=== PATIENT | male | born 1970 | race Hispanic/Latino ===

== ENCOUNTER 2018-12-04 16:05 | Emergency (ER) | payer MEDICARE, OTHER ==
[~2018-12-04] VITALS: Ht 172.7 cm; Wt 99.8 kg
[~2018-12-04 16:05] MED LIST: ALPRAZOLAM1 MG PO; ATORVASTATIN CA10 MG PO; BUPROPION HCL100 MG PO; CALCIUM600 MG PO; CINNAMON500 MG PO; COLESTIPOL HCL1 G1 PO; COLESTIPOL HCL1 GM PO; CRESTOR10 MG PO; CYMBALTA60 MG PO; DEXILANT60 MG PO; DICYCLOMINE HCL20 MG PO; FISH OIL300 MG PO; FOLIC ACID1 MG PO; GLIMEPIRIDE2 MG PO; HUMIRA40 MG/0.8 SC; HYDROCODON-ACE1 EAC9 PO; HYOSCYAMINE0.125 M2 PO; IBUPROFEN400 MG PO; LISINOPRIL2.5 MG PO; LISINOPRIL5 MG PO; LYRICA150 MG PO; LYRICA75 MG PO; METFORMIN HCL500 MG PO; METHOCARBAMOL750 MG PO; METHOTREXATE2.5 MG PO; METOCLOPRAMIDE H5 MG PO; PREDNISONE5 MG PO; SEROQUEL XR300 MG PO; SEROQUEL25 MG PO; SERTRALINE HCL100 MG PO; SUCRALFATE1 GM PO; TIZANIDINE HCL4 MG PO; TRICOR145 MG PO; ULTRAM 50MG50 MG PO
--- OUTSIDE RECORDS SUMMARY | 2018-12-04 16:08 | XMS REPORT | Clinical Summary ---
Author Author [facility] Organization [facility] Address Unknown Phone Unavailable Care Team Providers Care Engineering Director Name Role Phone Timoteo Fowler MD PCP Allergies Comments Active Allergy Reactions Severity Noted Date Clindamycin Rash Low 01/08/2008 Codeine 07/04/2007 Penicillin V Potassium 07/01/2009 Medications End Date Status Medication Sig Dispensed Refills Start Date Active Hfsox-4-UAX-EPA-Fish Oil Take by 0 1,000 mg (120 mg-180 mg) mouth. cap Active colestipol (COLESTID) 1 Take by mouth 0 gram Tab 2 times daily. Active calcium carbonate/vitamin Take by mouth 0 D3 (CALCIUM 600 + D,3, daily. OR) Active Butalbital-Acetaminophen- Take by mouth 0 Caff 50-300-40 mg cap every 6 hours as needed for Headache. Active atorvastatin (LIPITOR) 40 Take 40 mg by 0 mg tablet mouth at bedtime nightly. Active ammonium lactate Apply to 0 (LAC-HYDRIN) 12 % lotion affected area daily Apply to elbows . Active ALPRAZolam (XANAX) 1 mg Take 1 mg by 0 tablet mouth 3 times daily. Active blood glucose meter Use as 1 Kit 0 (PRECISION XTRA directed.. 8 GLUCOMETER)Indications: Type 2 diabetes mellitus with complication, without long-term current use of insulin Active blood glucose (PRECISION Use 2 times 50 Each 3 XTRA TEST STRIPS) test weekly (once 8 stripsIndications: Type 2 per day on diabetes mellitus with Mon,Thurs) to complication, without test blood long-term current use of sugar. insulin Active lancets 28 Use 2 times 100 Each 1 gaugeIndications: Type 2 weekly as 8 diabetes mellitus with directed. complication, without long-term current use of insulin Active blood glucose meter Use as 1 Kit 0 (PRECISION XTRA directed.. 8 GLUCOMETER)Indications: Type 2 diabetes mellitus with complication, without long-term current use of insulin Active blood glucose (PRECISION Use 2 times 50 Each 3 XTRA TEST STRIPS) test weekly (once 8 stripsIndications: Type 2 per day on diabetes mellitus with Mon,Thurs) to complication, without test blood long-term current use of sugar. insulin Active lancets 28 Use 2 times 50 Each 1 gaugeIndications: Type 2 weekly as 8 diabetes mellitus with directed. complication, without long-term current use of insulin Active omeprazole (PRILOSEC) 20 Take 1 30 capsule 3 mg delayed release capsule by 8 capsuleIndications: mouth daily. Gastroesophageal reflux disease without esophagitis Active gabapentin (NEURONTIN) Take 1 90 capsule 1 300 mg capsule by 8 capsuleIndications: mouth 3 times Neuropathy daily. Active ibuprofen (MOTRIN) 800 mg Take 1 tablet 30 tablet 1 tabletIndications: by mouth 8 Arthritis every 8 hours as needed for Pain (take with food). Active aspirin 325 mg tablet Take 325 mg 0 by mouth 2 times daily. Active buPROPion (WELLBUTRIN SR) Take 1 tablet 60 tablet 2 150 mg sustained release by mouth 8 tabletIndications: daily for 3 Tobacco abuse days then 1 tablet by mouth 2 times daily. Active cyclobenzaprine Take 1 tablet 60 tablet 2 (FLEXERIL) 10 mg by mouth 3 8 tabletIndications: times daily Chronic midline low back as needed for pain without sciatica Muscle Spasms. Active hydrOXYzine (ATARAX) 25 Take 1 tablet 30 tablet 2 mg tabletIndications: by mouth 8 Insomnia, unspecified nightly at type bedtime as needed for Insomnia. 02/25/2018 Discontinued OMEGA-3 FATTY ACIDS 500 1 tab daily over the 0 MG CAPIndications: for counter 9 Hypertriglyceridemia cholesterol 03/26/2018 Discontinued gabapentin (NEURONTIN) Take 1 90 capsule 0 300 mg capsule by 8 capsuleIndications: mouth 3 times Neuropathy daily. 05/13/2018 Discontinued oxyCODONE-acetaminophen Take 1 tablet 0 10-325 mg per tablet by mouth every 6 hours as needed for Pain. 05/13/2018 Discontinued traMADol (ULTRAM) 50 mg Take 50 mg by 0 tablet mouth 3 times daily. 05/13/2018 Discontinued methocarbamol (ROBAXIN) Take 500 mg 0 500 mg tablet by mouth 4 times daily as needed for Pain. 03/26/2018 Discontinued pregabalin (LYRICA) 300 Take 300 mg 0 mg capsule by mouth 2 times daily. 05/13/2018 Discontinued metFORMIN (GLUCOPHAGE) Take 500 mg 0 500 mg tablet by mouth 2 times daily (with meals). 05/13/2018 Discontinued ketoconazole (NIZORAL) 2 Apply to 0 % shampoo affected area weekly. 05/13/2018 Discontinued ketoconazole (NIZORAL) 2 Apply to 0 % topical cream affected area daily. 05/13/2018 Discontinued fluocinonide (LIDEX) 0.05 Apply to 0 % ointment affected area 2 times daily. 05/13/2018 Discontinued finasteride (PROSCAR) 5 Take 5 mg by 0 mg tablet mouth daily. 05/13/2018 Discontinued fenofibrate Take 145 mg 0 nanocrystallized (TRICOR) by mouth 145 mg tablet daily. 05/13/2018 Discontinued dexlansoprazole Take 60 mg by 0 (DEXILANT) 60 mg delayed mouth. release capsule 05/13/2018 Discontinued Cyclobenzaprine Take 5 mg by 0 (FLEXERIL) 5 mg tablet mouth 3 times daily as needed. 07/22/2018 Discontinued buPROPion (WELLBUTRIN XL) Take 300 mg 0 300 mg extended release by mouth tablet every morning. 07/22/2018 Discontinued amitriptyline (ELAVIL) 25 Take 25 mg by 0 mg tablet mouth at bedtime nightly. 07/22/2018 Discontinued ibuprofen (MOTRIN) 800 mg Take 800 mg 0 tablet by mouth every 8 hours as needed. 06/14/2018 Discontinued gabapentin (NEURONTIN) Take 1 90 capsule 1 300 mg capsule by 8 capsuleIndications: mouth 3 times Neuropathy daily. 08/06/2018 Discontinued cyclobenzaprine Take 1 tablet 60 tablet 2 (FLEXERIL) 10 mg by mouth 3 8 tabletIndications: times daily Chronic midline low back as needed for pain without sciatica Muscle Spasms. 08/06/2018 Discontinued hydrOXYzine (ATARAX) 25 Take 1 tablet 30 tablet 2 mg tabletIndications: by mouth 8 Insomnia, unspecified nightly at type bedtime as needed for Insomnia. Active Problems Problem Noted Date Unspecified inflammatory polyarthropathy 01/27/2010 Dyslipidemia 09/27/2009 Major depression 09/17/2009 GERD (gastroesophageal reflux disease) 02/11/2008 Elevated blood pressure reading without diagnosis of hypertension 08/22/2007 Hip pain 07/04/2007 Impaired fasting glucose 07/04/2007 Hypokalemia 07/04/2007 Hypocalcemia 07/04/2007 Dental caries 07/04/2007 Encounters Care Team Description Date Type Specialty Timoteo Fowler III, MD Chronic midline low back pain without sciatica; Insomnia, unspecified type 08/06/[address] [facility] Timoteo Fowler III, MD Arthritis 07/26/2018 Ancillary Radiology Procedure Timoteo Fowler III, MD Gastroesophageal reflux disease without esophagitis (Primary Dx); Dyslipidemia; Type 2 diabetes mellitus with complication, without long-term current use of insulin; Flu vaccine need; History of arthroplasty of right knee; Infection associated with internal right knee prosthesis, subsequent encounter; Recurrent major depressive disorder, remission status unspecified; Arthritis; Tobacco abuse 07/22/[address] [facility] J Luis Adames ResidentMD Information Only 06/20/2018 Telephone Psychiatry Timoteo Fowler III, MD Neuropathy 06/14/[address] [facility] Timoteo Fowler III, MD Type 2 diabetes mellitus without complication, without long-term current use of insulin 05/16/2018 Orders Only [facility] Timoteo Peoples III, MD Type 2 diabetes mellitus without complication, without long-term current use of insulin (Primary Dx) 05/16/2018 Orders Only [facility] Timoteo Peoples III, MD Chronic pain of both knees; Chronic midline low back pain without sciatica 05/14/2018 Ancillary Radiology Procedure Timoteo Fowler III, MD Recurrent major depressive disorder, remission status unspecified (Primary Dx); Gastroesophageal reflux disease without esophagitis; Chronic pain of both knees; Immunization due; Type 2 diabetes mellitus without complication, without long-term current use of insulin; Chronic midline low back pain without sciatica; Insomnia, unspecified type; Need for Tdap vaccination 05/13/[address] [facility] Vanessa Geller MD Preventative health care (Primary Dx); Need for Tdap vaccination; Hyperlipidemia, unspecified hyperlipidemia type; Abnormal laboratory test result- past RF, SERGIO ,sed rate abn 03/26/2018 Office Visit Family Practice Timoteo Fowler III, MD Depression, unspecified depression type 03/26/2018 Orders Only [facility] Practice Timoteo Fowler III, MD Depression, unspecified depression type (Primary Dx); Anxiety; Neuropathy; Type 2 diabetes mellitus with complication, without long-term current use of insulin 03/26/2018 Orders Only Family Practice Glenny Vu MD Neuropathy 03/24/2018 Refill Family Practice Dena Walker, Yana Palacios NP Neuropathy (Primary Dx); Type 2 diabetes mellitus with complication, without long-term current use of insulin 02/25/2018 Same Day Family Practice after 12/03/2017 Immunizations Name Dates Previously Given Next Due Influenza A (H1N1) Vac 09/27/2009 Injection Influenza, Injectable, 08/01/2016, 08/09/2015, 08/11/2014 Quadrivalent Influenza, Injectable, 08/01/2016, 08/11/2014 Quadrivalent, Preservative Free Influenza, 07/22/2018 Vaccine<FLUCELVAX>(Multi- Dose) PNEUMOCOCCAL 23-VALPS 03/23/2016 VACCINE 25 MCG/0.5 ML INJECTION PPV 23 (Pneumococcal 03/23/2016 Polysaccharide 23 Valent) Tdap (Tetanus Toxoid, 05/13/2018 Reduced Diphtheria Toxoid And Acellular Pertussis, Absorbed) Family History Medical History Relation Name Comments Diabetes Mother Hypertension Mother Family Medical History Other Unknown Relation Name Status Comments Father unknown Mother Alive Other Social History Date Tobacco Use Types Packs/Day Years Used Current Every Day Smoker Cigarettes 1 Smokeless Tobacco: Never Used Tobacco Cessation: Ready to Quit: Yes; Counseling Given: Yes Alcohol Use Drinks/Week oz/Week Comments Yes 12 cans/beers/ weekends Sex Assigned at Date Recorded Not on file Industry Job Start Date Occupation Not on file Not on file Not on file Travel End Travel History Travel Start No recent travel history available. Last Filed Vital Signs Time Taken Vital Sign Reading 07/22/2018 3:08 PM CDT Blood Pressure 149/89 07/22/2018 3:08 PM CDT Pulse 111 07/22/2018 3:08 PM CDT Temperature 36.9 C (98.5 F) 07/22/2018 3:08 PM CDT Respiratory Rate 20 02/25/2018 11:48 AM CDT Oxygen Saturation 100% - Inhaled Oxygen - Concentration 07/22/2018 3:08 PM CDT Weight 86.5 kg (190 lb 9.6 oz) 07/22/2018 3:08 PM CDT Height 172.7 cm (5' 8") 07/22/2018 3:08 PM CDT Body Mass Index 28.98 Plan of Treatment Health Maintenance Due Date Last Done Comments DM Microalbumin Urine 09/27/2010 09/27/2009 Scrn (Yearly) Colorectal Cancer Scrn 2018 Annual (FIT/FOBT) Age 50 to 75 DM HGBA1C (Yearly) 03/26/2019 03/26/2018 DM Foot Exam (Yearly) 05/13/2019 05/13/2018, 02/25/2018 DM Retinal Exam (Yearly) 05/14/2019 05/14/2018 IMM Influenza Seasonal Completed 07/22/2018, 08/01/2016, 08/01/2016, Jul to December (>/=19 yrs) Additional history exists Procedures Comments Procedure Name Priority Date/Time Associated Diagnosis XRAY HAND 3 VIEWS MIN Routine 07/26/2018 Arthritis 2:45 PM CDT XRAY HAND 3 VIEWS MIN Routine 07/26/2018 Arthritis 2:45 PM CDT OPHTHALMOLOGY RETINAL Routine 05/14/2018 Type 2 diabetes mellitus SCAN 3:59 PM CDT without complication, without long-term current use of insulin XRAY SPINE LUMBOSACRAL Routine 05/14/2018 Chronic midline low back AP-LAT 3:08 PM CDT pain without sciatica XRAY KNEES-BILATERAL WT. Routine 05/14/2018 Chronic pain of both BEARING (AP/LAT/SUN) 3:08 PM CDT knees DIABETIC FOOT EXAM Routine 05/13/2018 Type 2 diabetes mellitus 11:57 AM CDT without complication, without long-term current use of insulin HIV-1/HIV-2 ROUTINE Routine 03/26/2018 Preventative health care SCREENING 3:27 PM CDT HEPATITIS PANEL Routine 03/26/2018 Preventative health care 3:27 PM CDT TSH Routine 03/26/2018 Preventative health care 3:27 PM CDT HEMOGLOBIN A1C Routine 03/26/2018 Preventative health care 3:27 PM CDT COMPREHENSIVE METABOLIC Routine 03/26/2018 Preventative health care PANEL(DBIL NOT INCLUDED) 3:27 PM CDT CBC/DIFF Routine 03/26/2018 Preventative health care 3:27 PM CDT DIABETIC FOOT EXAM Routine 02/25/2018 Type 2 diabetes mellitus 4:06 PM CDT with complication, without long-term current use of insulin after 12/03/2017 Results * XRAY HAND 3 VIEWS MIN (07/26/2018 2:45 PM CDT) Only the most recent of 2 results within the time period is included. Impressions Performed At IMPRESSION: SMS 1.No acute radiographic abnormality. 2.Mild scattered degenerative changes. 3.Chronic punctate foreign body in the dorsum of the right hand third digit. 4.Accessory ossicle versus chronic avulsion fracture in the left ulna triquetral articulation. Dictated By: Anastacio Govea DO, 07/26/2018 2:58 PM I have reviewed the study and agree with the findings in this report. Signed By: Chuck Fernández MD, 07/26/2018 2:59 PM Narrative Performed At EXAM: XRAY LEFT HAND 3 VIEWS MIN, XRAY RIGHT HAND 3 VIEWS MIN SMS INDICATION: pain COMPARISON: Bilateral hand radiographs 07/28/2009. DISCUSSION: Bone: No acute displaced fracture. Joints: The joint spaces are well-maintained. Accessory ossicle versus chronic avulsion fracture in the left ulna triquetral articulation. Mild scattered degenerative changes. Soft tissues: Chronic punctate hyperdensity in the dorsum of the right third digit. Procedure Note Interface, Rad/Mammog In - 07/26/2018 3:04 PM CDT EXAM: XRAY LEFT HAND 3 VIEWS MIN, XRAY RIGHT HAND 3 VIEWS MIN INDICATION: pain COMPARISON: Bilateral hand radiographs 07/28/2009. DISCUSSION: Bone: No acute displaced fracture. Joints: The joint spaces are well-maintained. Accessory ossicle versus chronic avulsion fracture in the left ulna triquetral articulation. Mild scattered degenerative changes. Soft tissues: Chronic punctate hyperdensity in the dorsum of the right third digit. IMPRESSION IMPRESSION: 1. No acute radiographic abnormality. 2. Mild scattered degenerative changes. 3. Chronic punctate foreign body in the dorsum of the right hand third digit. 4. Accessory ossicle versus chronic avulsion fracture in the left ulna triquetral articulation. Dictated By: Anastacio Govea DO, 07/26/2018 2:58 PM I have reviewed the study and agree with the findings in this report. Signed By: Chuck Fernández MD, 07/26/2018 2:59 PM Performing Organization Address [facility] Phone Number SMS * OPHTHALMOLOGY RETINAL SCAN (05/14/2018 3:59 PM CDT) RETINAL NORMAL IRIS SCAN-FINAL RESULT Right Diabetic None IRIS Retinopathy Right Macular None IRIS Edema Right Other Suspected Glaucoma IRIS Suspected Conditions Right Image Gradeable Image IRIS Quality Left Diabetic None IRIS Retinopathy Left Macular None IRIS Edema Left Other Suspected Glaucoma IRIS Suspected Conditions Left Image Gradeable Image IRIS Quality Narrative Performed At Retinal Study Result for SOFI TORRE JOE, a 47 y/o, M (: 1970, ) presented to [facility] on 05-13-2018 for a retinal imaging study of the left and right eyes. Based on the findings of the study, the following is recommended for SOFI TORRE Other Suspected Condition Found: Refer to [facility], next available appointment.For Follow-up at [facility]: The patient can be scheduled into any [facility] that has an open booking by calling the appointment center. Interpreting Provider's Comments:No comments provided Right Eye Findings: Negative for Diabetic Retinopathy. Other: Suspected Glaucoma Left Eye Findings: Negative for Diabetic Retinopathy. Other: Suspected Glaucoma This result was electronically signed by Keegan Trivedi MD, , Taxonomy: [id number] on 05-14-2018 08:59:51 [facility] time. NOTE:Any pathology noted on this diabetic retinal evaluation should be confirmed by an appropriate ophthalmic examination. Performing Organization Address [facility] Phone Number IRIS * XRAY KNEES-BILATERAL WT. BEARING (AP/LAT/SUN) (05/14/2018 3:08 PM CDT) Impressions Performed At IMPRESSION: SMS 1. Status post total knee replacement. 2. 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 Dictated By: Juliocesar Kelly MD, 05/14/2018 3:30 PM I have reviewed the study and agree with the findings in this report. Signed By: Tio Danielle MD, 05/15/2018 8:36 AM Narrative Performed At EXAM: Bilateral weightbearing knee x-rays, 2 weight-bearing views. 4 SMS images INDICATION: Pain COMPARISON: None available DISCUSSION: Right knee: Status post total knee arthroplasty. The medial and lateral joint spaces are well-maintained. Left knee: The medial and lateral joint spaces are well-maintained. Mild lateral compartment osteophytosis. No patellofemoral compartment degenerative changes. No acute fracture or dislocation. No joint effusion(s). The soft tissues are otherwise unremarkable. Ossification suprapatellar region of the right knee. Procedure Note Interface, Rad/Mammog In - 05/15/2018 8:41 AM CDT EXAM: Bilateral weightbearing knee x-rays, 2 weight-bearing views. 4 images INDICATION: Pain COMPARISON: None available DISCUSSION: Right knee: Status post total knee arthroplasty. The medial and lateral joint spaces are well-maintained. Left knee: The medial and lateral joint spaces are well-maintained. Mild lateral compartment osteophytosis. No patellofemoral compartment degenerative changes. No acute fracture or dislocation. No joint effusion(s). The soft tissues are otherwise unremarkable. Ossification suprapatellar region of the right knee. IMPRESSION IMPRESSION: 1. Status post total knee replacement. 2. 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 Dictated By: Juliocesar Kelly MD, 05/14/2018 3:30 PM I have reviewed the study and agree with the findings in this report. 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 Dictated By: Juliocesar Kelly MD, 05/14/2018 3:44 PM I have reviewed the study and agree with the findings in this report. Signed By: Tio Danielle MD, 05/15/2018 8:37 AM Narrative Performed At XRAY SPINE LUMBOSACRAL AP-LAT: 05/14/2018 3:08 PM SMS Number of views: 3 views, 3 images CLINICAL INFORMATION Pain COMPARISON None. FINDINGS The alignment, development and bony structures are normal. There is no fracture or destructive lesion. Spondylarthritis most pronounced at the L4-L5 and L5-S1 disc space. The sacrum and sacroiliac joints are normal. Procedure Note Interface, Rad/Mammog In - 05/15/2018 8:42 AM CDT XRAY SPINE LUMBOSACRAL AP-LAT: 05/14/2018 3:08 PM Number of views: 3 views, 3 images CLINICAL INFORMATION Pain COMPARISON None. FINDINGS The alignment, development and bony structures are normal. There is no fracture or destructive lesion. Spondylarthritis most pronounced at the L4-L5 and L5-S1 disc space. The sacrum and sacroiliac joints are normal. 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 Dictated By: Juliocesar Kelly MD, 05/14/2018 3:44 PM I have reviewed the study and agree with the findings in this report. Signed By: Tio Danielle MD, 05/15/2018 8:37 AM Performing Organization Address [facility] Phone Number SMS * DIABETIC FOOT EXAM (05/13/2018 11:57 AM CDT) Only the most recent of 2 results within the time period is included. Narrative Performed At Timoteo Fowler III, MD 05/13/20181:48 PM Diabetic Foot Exam was performed at 05/13/2018 12:12 PM.Right foot sensation is normal, right foot pulses are normal, right foot appearance is abnormal (Onychomycosis).Left foot sensation is normal,left foot pulses are normal,left foot appearance is abnormal (Onychomycosis). * HIV-1/HIV-2 ROUTINE SCREENING (03/26/2018 3:27 PM CDT) HIV-1/HIV-2 Negative NEG BT MAIN-STATION 3 Performing Organization Address [facility]State[facility] Phone Number MISYS BT MAIN-STATION 3 * HEMOGLOBIN A1C (03/26/2018 3:27 PM CDT) Hemoglobin A1c 6.1 4.3 - 6.1 % BT DIAGNOSTIC IMMUNOLOGY Est Average 128.4 mg/dL BT DIAGNOSTIC Gluc IMMUNOLOGY Specimen Blood Performing Organization Address [facility] Phone Number MISYS DIAGNOSTIC IMMUNOLOGY * COMPREHENSIVE METABOLIC PANEL(DBIL NOT INCLUDED) (03/26/2018 3:27 PM CDT) Albumin 4.5 4.2 - 5.5 g/dL BT MAIN-STATION 1 Calcium 9.4 8.6 - 10.3 mg/dL BT MAIN-STATION 1 CO2 25 21 - 31 mmol/L BT MAIN-STATION 1 Chloride 107 98 - 107 mmol/L BT MAIN-STATION 1 Creatinine 0.80 0.7 - 1.3 mg/dL BT MAIN-STATION 1 Glucose 92 70 - 110 mg/dL BT MAIN-STATION 1 Alk Phos 63 34 - 104 U/L BT MAIN-STATION 1 Potassium 3.9 3.5 - 5.1 mmol/L BT MAIN-STATION 1 Sodium 140 136 - 145 mmol/L BT MAIN-STATION 1 ALT 12 7 - 52 U/L BT MAIN-STATION 1 AST 14 13 - 39 U/L BT MAIN-STATION 1 Urea Nitrogen 13 7 - 25 mg/dL BT MAIN-STATION 1 T Bilirubin 0.4 0.2 - 1.2 mg/dL BT MAIN-STATION 1 T Protein 7.1 6.0 - 8.3 g/dL BT MAIN-STATION 1 GFR, Estimated >60 mL/min/1.73 m2 BT MAIN-STATION 1 GFR, Estim, >60 mL/min/1.73 m2 BT MAIN-STATION Afr-Am 1 Anion Gap 8 BT MAIN-STATION 1 Specimen Blood Performing Organization Address [facility] [place] Number MISYS BT MAIN-STATION 1 * TSH (03/26/2018 3:27 PM CDT) TSH 2.26 0.57 - 3.74 uIU/mL BT MAIN-STATION 1 Specimen Blood Performing Organization Address [facility] Phone Number MISYS BT MAIN-STATION 1 * HEPATITIS PANEL (03/26/2018 3:27 PM CDT) HCV IgG Negative NEG BT MAIN-STATION 3 HBsAg Negative NEG BT MAIN-STATION 3 HAV, IgM Negative NEG BT MAIN-STATION 3 HBcAb, IgM Negative NEG BT MAIN-STATION 3 Specimen Blood Performing Organization Address [facility] Phone Number MISYS BT MAIN-STATION 3 * CBC/DIFF (03/26/2018 3:27 PM CDT) WBC 6.8 4.5 - 12.0 K/uL BT MAIN-STATION 2 RBC 4.75 4.60 - 6.20 M/uL BT MAIN-STATION 2 Hemoglobin 15.3 14.0 - 18.0 g/dL BT MAIN-STATION 2 Hematocrit 45.1 40.0 - 54.0 % BT MAIN-STATION 2 MCV 95 (H) 82 - 92 fL BT MAIN-STATION 2 MCH 32.2 (H) 27.0 - 31.0 pg BT MAIN-STATION 2 MCHC 33.9 32.0 - 36.0 g/dL BT MAIN-STATION 2 RDW 48.4 (H) 35.1 - 43.9 fL BT MAIN-STATION 2 Platelet 270 150 - 400 K/uL BT MAIN-STATION 2 Mean Platelet 9.2 (L) 9.4 - 12.4 fL BT MAIN-STATION Volume 2 Percent NRBC 0.0 BT MAIN-STATION 2 Absolute NRBC 0.00 BT MAIN-STATION 2 Neutrophil 51.8 34.0 - 67.9 % BT MAIN-STATION 2 Lymphocyte 36.3 21.8 - 50.0 % BT MAIN-STATION 2 Monocyte 5.7 5.3 - 12.0 % BT MAIN-STATION 2 Eosinophil 5.7 (H) 0.8 - 5.0 % BT MAIN-STATION 2 Basophil 0.4 0.2 - 1.2 % BT MAIN-STATION 2 Pct Immat Gran 0.1 0.0 - 0.5 BT MAIN-STATION 2 Neutrophil, Abs 3.52 1.78 - 5.36 K/uL BT MAIN-STATION 2 Lymphocyte, Abs 2.47 1.32 - 3.57 K/uL BT MAIN-STATION 2 Monocyte, Abs 0.39 0.30 - 0.82 K/uL BT MAIN-STATION 2 Eosinophil, Abs 0.39 0.04 - 0.54 K/uL BT MAIN-STATION 2 Basophil, Abs 0.03 0.01 - 0.08 K/uL BT MAIN-STATION 2 Absol Immat 0.01 0.00 - 0.03 K/uL BT MAIN-STATION Gran 2 Specimen Blood Performing Organization Address [facility] Phone Number MISYS BT MAIN-STATION 2 after 12/03/2017 Insurance Type Payer Benefit Subscriber ID Effective Phone Address Plan / Dates Group [employer] [place] xxxxxx 2018-5 [address] [place], [place] [address] [place] [employer] [id number] SSI xxxxxxxxx 2017-P [phone] [address] [place] [address] [employer] PLAN [employer] PLAN xxxxxx 2018-[address] [place] [address] [place] [address]
--- OUTSIDE RECORDS SUMMARY | 2018-12-04 16:08 | XMS REPORT ---
Author [facility] Address Unknown Phone Unavailable Care Team Providers Care Bill Distributor Name Role Phone Unavailable Unavailable Payers Payer Name Policy Type Policy Number Effective Date Expiration Date Problems This patient has no known problems. Allergies, Adverse Reactions, Alerts Allergy Name Allergy Type Status Severity Reaction(s) Onset Date Inactive Date Treating Clinician Comments codeine DA Active U 2018-11-28 00:00:00 nicotine DA Active NV 2018-11-28 00:00:00 Penicillins DA Active U 2018-09-25 00:00:00 codeine DA Active U 2018-09-25 00:00:00 nicotine DA Active NV 2018-09-25 00:00:00 clindamycin DA Active U 2018-09-25 00:00:00 Penicillins DA Active U 2018-06-30 00:00:00 codeine DA Active U 2018-06-30 00:00:00 nicotine DA Active NV 2018-06-30 00:00:00 clindamycin DA Active U 2018-06-30 00:00:00 Penicillins DA Active U 2016-10-13 00:00:00 codeine DA Active U 2016-10-13 00:00:00 nicotine DA Active NV 2016-10-13 00:00:00 clindamycin DA Active U 2016-10-13 00:00:00 Medications This patient has no known medications. Encounters Start Date/Time End Date/Time Encounter Type Admission Type Attending [facility] Care Department Encounter ID 2018-10-23 00:00:00 2018-10-23 00:00:00 Outpatient [facility] [id number] 2018-09-10 00:00:00 2018-09-10 00:00:00 Outpatient [facility] [id number] 2018-08-22 00:00:00 2018-08-22 00:00:00 Outpatient [facility] [id number] 2018-08-06 00:00:00 2018-08-06 00:00:00 Outpatient [facility] [id number] 2018-08-06 00:00:00 2018-08-06 00:00:00 Outpatient [facility] [id number] 2018-07-26 14:33:33 2018-07-26 14:33:33 Outpatient [facility] [id number] 2018-07-23 00:00:00 2018-07-23 00:00:00 Outpatient [facility] [id number] 2018-07-22 15:06:56 2018-07-22 15:06:56 Outpatient [facility] [id number] 2018-05-14 15:23:38 2018-05-14 15:23:38 Outpatient [facility] [id number] 2018-05-14 14:41:56 2018-05-14 14:41:56 Outpatient [facility] [id number] 2018-05-13 11:20:12 2018-05-13 11:20:12 Outpatient [facility] [id number] 2018-05-13 00:00:00 2018-05-13 00:00:00 Outpatient [facility] [id number] 2018-03-26 15:17:21 2018-03-26 15:17:21 Outpatient [facility] [id number] 2018-03-26 13:29:56 2018-03-26 13:29:56 Outpatient [facility] [id number] 2018-03-26 00:00:00 2018-03-26 00:00:00 Outpatient [facility] [id number] 2018-02-25 15:00:10 2018-02-25 15:00:10 Outpatient [facility] [id number] Results Test Description Test Time Test Comments Text Results Atomic Results Result Comments - XR T-SPINE 3 VIEWS 2018-11-28 09:31:00 FAX: Carroll Pool MD [phone] [place]: [address] St: REG FAX: Do Russo NP Name: SOFI TORRE [facility] : 1970 Age/S: 48/M Elizabeth Murillo Unit #: [id number] Loc: [place] [address] Phys: Do Russo NP Acct: [id number] Dis Date: Status: REG ER PHONE #: [phone] Exam Date: 11/28/2018919 FAX #: [phone] Reason: fall, pain EXAMS: CPT CODE: [id number] XR T-SPINE 3 VIEWS 00804 HISTORY: Pain after fall. COMPARISON: None available. L-SPINE SERIES, 3 VIEWS: No acute fracture or dislocation. Vertebral body heights are maintained. Narrowed disc space at L4-L5 level with vacuum phenomenon. Anterior osteophytes. SI joints are preserved. Mild lumbarization of the S1 vertebral body. IMPRESSION: No acute fracture or dislocation. Vertebral body heights are maintained. T-SPINE SERIES, 3 VIEWS: No acute fracture or dislocation. Vertebral body heights are maintained. Disc spaces are preserved. Anterior osteophytes. Cervical fusion in the lower neck. IMPRESSION: No acute fracture or dislocation. Vertebral body heights are maintained. at 0931 Reported and signed by: Jacoby Ba M.D. CC: Carroll Gerardo MD; Do Russo NP Technologist: Moe MARCUS(R) Trnscrd Date/Time/By: 11/28/2018 (0931) : By: [email or web address] Orig Print D/T: S: 11/28/2018 (7534) PAGE 1 Signed Report - XR L-SPINE 2/3 VIEWS 2018-11-28 09:31:00 FAX: Carroll Pool MD [phone] [place]: St: REG FAX: Do Russo NP Name: SOFI TORRE [facility] : 1970 Age/S: 48/M [address] Unit #: [id number] Loc: [place] [address] Phys: Do Russo NP Acct: [id number] Dis Date: Status: REG ER PHONE #: [phone] Exam Date: 11/28/2018919 FAX #: [phone] Reason: fall, pain EXAMS: CPT CODE: [id number] XR L-SPINE 2/3 VIEWS 61174 HISTORY: Pain after fall. COMPARISON: None available. L-SPINE SERIES, 3 VIEWS: No acute fracture or dislocation. Vertebral body heights are maintained. Narrowed disc space at L4-L5 level with vacuum phenomenon. Anterior osteophytes. SI joints are preserved. Mild lumbarization of the S1 vertebral body. IMPRESSION: No acute fracture or dislocation. Vertebral body heights are maintained. T-SPINE SERIES, 3 VIEWS: No acute fracture or dislocation. Vertebral body heights are maintained. Disc spaces are preserved. Anterior osteophytes. Cervical fusion in the lower neck. IMPRESSION: No acute fracture or dislocation. Vertebral body heights are maintained. at 0931 Reported and signed by: Jacoby Ba M.D. CC: Carroll Gerardo MD; Do Russo NP Technologist: Moe MARCUS(R) Trnscrd Date/Time/By: 11/28/2018 (0931) : By: [email or web address] Orig Print D/T: S: 11/28/2018 (6134) PAGE 1 Signed Report
[2018-12-04] MEDS ORDERED: SODIUM CHLORIDE 0.9% 1000ML 1,000 ML IV STA (16:33)
[2018-12-04] MEDS ORDERED: ONDANSETRON HCL INJ 2MG/ML 2ML 2 MG/ML VIAL IV ONE (16:45)
[2018-12-04] MEDS ORDERED: FAMOTIDINE 20 MG/2 ML VIAL IV ONE (16:45)
[2018-12-04] MEDS ORDERED: LORAZEPAM INJ 2 MG/ML VIAL IV ONE (16:45)
--- NOTE | 2018-12-04 16:54 | NUR ---
PT STATES PTSD CANT DO CATSCAN WITHOUT MEDICATION FOR ANIEXTY. PT HIGHLY HISTORONIC. AWARE. ALSO, SENDING LIPASE TO [facility]IN [facility] THROUGH [facility] W/ETA 90 MINS.
--- NOTE | 2018-12-04 17:03 | NUR ---
LAB HERE TO [facility] LIPASE. WALE CANCELLED.
--- NOTE | 2018-12-04 19:13 | Diagnostic Imaging Report ---
EXAM: CT Abdomen and Pelvis WITH contrast INDICATION: Abdominal pain ^[id number] ^1705 COMPARISON: None. TECHNIQUE: Abdomen and pelvis were scanned utilizing a multidetector helical scanner from the lung base to the pubic symphysis after administration of IV contrast. Coronal and sagittal reformations were obtained. Routine protocol was performed. Scan was performed when during portal venous phase. IV CONTRAST: 100 mL of Isovue-300 ORAL CONTRAST: None RADIATION DOSE: Total DLP: 2208 mGy*cm Estimated effective dose: (DLP x 0.015 x size factor) mSv COMPLICATIONS: None FINDINGS: LINES and TUBES: None. LOWER THORAX: Unremarkable HEPATOBILIARY: No focal hepatic lesions. No biliary ductal dilation. GALLBLADDER: Cholecystectomy. SPLEEN: No splenomegaly. PANCREAS: No focal masses or ductal dilatation. ADRENALS: No adrenal nodules KIDNEYS/URETERS: Kidneys enhance symmetrically. No hydronephrosis. No cystic or solid mass lesions. No stones. GI TRACT: Subtotal fat stranding surrounding the ascending colon and few loops of small bowel in the right upper quadrant with associated tiny diverticula throughout the ascending colon, this is better seen on series 2, image 73. No abnormal distention, wall thickening, or evidence of bowel obstruction. Left amount of retained stool throughout the colon. Appendix is normal. PELVIC ORGANS/BLADDER: Unremarkable. LYMPH NODES: No lymphadenopathy. VESSELS: Unremarkable. PERITONEUM / RETROPERITONEUM: No free air or fluid. BONES: Moderate degenerative changes at L4-L5. SOFT TISSUES: Unremarkable. IMPRESSION: Tiny scattered diverticulosis of the ascending colon with subtle surrounding fat stranding suggestive of early diverticulitis. Cholecystectomy. Normal appendix. Signed by: Dr. Evelin Chris M.D. on 12/04/2018 7:10 PM
[2018-12-04] MEDS ORDERED: FLAGYL500 MG PO (19:29)
[2018-12-04] MEDS ORDERED: BACTRIM DS TAB1 EACH PO (19:29)
[2018-12-04] MEDS ORDERED: ULTRAM50 MG PO (19:29)
[2018-12-04] MEDS ORDERED: ONDANSETRON ODT8 MG PO (19:37)
== END 2018-12-04 19:50 | disposition home or self-care (01) ==
LOC: FSED 16:05
DX: R10.12 Left upper quadrant pain (principal); R11.2 Nausea with vomiting, unspecified; R19.7 Diarrhea, unspecified
CPT/HCPCS: 36415; 74177; 80048; 80076; 80307; 81003; 82553; 83690; 84484; 85025; 99284; J2060; J2405; J7030

== ENCOUNTER 2021-03-22 10:08 | Emergency (ER) | payer OTHER ==
[~2021-03-22] VITALS: Ht 172.7 cm; Wt 92.7 kg
[~2021-03-22 10:08] MED LIST changes: +BACTRIM DS TAB1 EACH PO; +FLAGYL500 MG PO; +ONDANSETRON ODT8 MG PO; +ULTRAM50 MG PO
[2021-03-22] MEDS ORDERED: IOPAMIDOL 370 MG/ML 200 ML INFUS..BTL INJ ONE (10:58)
[2021-03-22] MEDS ORDERED: SODIUM CHLORIDE 0.9% 50ML 50 ML ONE (10:58)
[2021-03-22] MEDS ORDERED: VITAMIN D350 MCG (11:01)
[2021-03-22] MEDS ORDERED: FENOFIBRATE160 MG (11:01)
[2021-03-22] MEDS ORDERED: PROTONIX20 MG PO (11:01)
[2021-03-22] MEDS ORDERED: SULFASALAZINE500 MG PO (11:01)
[2021-03-22] MEDS ORDERED: CYCLOBENZAPRINE10 MG PO (11:01)
[2021-03-22] MEDS ORDERED: PERCOCET 10-321 EACH PO (11:01)
[2021-03-22] MEDS ORDERED: DIAZEPAM5 MG PO (11:01)
[2021-03-22] MEDS ORDERED: ASPIRIN EC81 MG PO (11:01)
[2021-03-22] MEDS ORDERED: DICYCLOMINE HCL20 MG PO (11:01)
[2021-03-22] MEDS ORDERED: FISH OIL 1,0001 EAC2 (11:01)
[2021-03-22] MEDS ORDERED: GLIPIZIDE10 MG (11:01)
[2021-03-22] MEDS ORDERED: HYDRALAZINE HC100 MG PO (11:01)
[2021-03-22] MEDS ORDERED: MAGNESIUM/ALUMINUM/SIMETHICONE 30 ML UDC ONE (12:14)
[2021-03-22] MEDS ORDERED: MAGNESIUM/ALUMINUM/SIMETHICONE 30 ML UDC PO ONE (12:15)
[2021-03-22 12:31] LABS: CREATINE KINASE MB 1.6 ng/mL (0-5.0)
== END 2021-03-22 14:13 | disposition other institution (70) ==
LOC: FSED 10:42
DX: R07.9 Chest pain, unspecified (principal); E11.65 Type 2 diabetes mellitus with hyperglycemia; E11.40 Type 2 diabetes mellitus with diabetic neuropathy, unspecified; F43.10 Post-traumatic stress disorder, unspecified; F41.9 Anxiety disorder, unspecified; M79.7 Fibromyalgia; M06.9 Rheumatoid arthritis, unspecified; M54.9 Dorsalgia, unspecified; G89.29 Other chronic pain
CPT/HCPCS: 36415; 71260; 80048; 80076; 82550; 82553; 84484; 85025; 99284; Q9967; 93005

== ENCOUNTER 2021-04-04 11:43 | Observation (INO) | payer OTHER ==
[~2021-04-04] VITALS: Ht 172.7 cm; Wt 90.7 kg
[~2021-04-04 11:43] MED LIST changes: +ASPIRIN EC81 MG PO; +CYCLOBENZAPRINE10 MG PO; +DIAZEPAM5 MG PO; +FENOFIBRATE160 MG; +FISH OIL 1,0001 EAC2; +GLIPIZIDE10 MG; +HYDRALAZINE HC100 MG PO; +PERCOCET 10-321 EACH PO; +PROTONIX20 MG PO; +SULFASALAZINE500 MG PO; +VITAMIN D350 MCG
[2021-04-04] MEDS ORDERED: MORPHINE SULFATE INJ 4 MG/ML INJ 1ML IV STA (12:05)
[2021-04-04] MEDS ORDERED: ASPIRIN 81 MG CHEW TAB PO ONE (12:15)
[2021-04-04 12:21] LABS: BASOPHILS % 0.5 % (0.0-1.0); EOSINOPHILS # (AUTO) 0.2 (0.0-0.4); EOSINOPHILS % 2.6 % (0.0-6.0); HEMATOCRIT 44.5 % (38.2-49.6); HEMOGLOBIN 15.8 g/dL (14.0-18.0); LYMPHOCYTES # (AUTO) 2.8 (1.0-3.2); MEAN CORPUSCULAR HEMOGLOBIN 30.1 pg (28-32); MEAN CORPUSCULAR HGB CONC 35.5 g/dL (31-35); MEAN CORPUSCULAR VOLUME 84.8 fL (81-99); MONOCYTES # (AUTO) 0.5 (0.2-0.8); MONOCYTES % 6.4 % (4.4-11.3); NEUTROPHILS # (AUTO) 4.4 (2.1-6.9); PLATELET COUNT 291 x10e3/uL (140-360); RED BLOOD COUNT 5.25 x10e6/uL (4.3-5.7); RED CELL DISTRIBUTION WIDTH 13.6 % (11.7-14.4)
[2021-04-04 12:31] LABS: AMPHETAMINES SCREEN,URINE NEGATIVE (NEGATIVE); BENZODIAZEPINES SCREEN,URINE NEGATIVE (NEGATIVE); PHENCYCLIDINE SCREEN,URINE NEGATIVE (NEGATIVE)
[2021-04-04 12:42] LABS: ALANINE AMINOTRANSFERASE 77 IU/L (0-55); ALBUMIN 4.5 g/dL (3.5-5.0); ALBUMIN/GLOBULIN RATIO 1.7 (0.8-2.0); ALKALINE PHOSPHATASE 63 IU/L (40-150); ANION GAP 18.2 mmol/L (8-16); BLOOD UREA NITROGEN 14 mg/dL (7-26); BUN/CREATININE RATIO 13 (6-25); CALCIUM 9.3 mg/dL (8.4-10.2); CARBON DIOXIDE 22 mmol/L (22-29); CHLORIDE 101 mmol/L (98-107); CREATINE KINASE 70 IU/L (30-200); CREATININE, SERUM 1.04 mg/dL (0.72-1.25); EST GLOMERULAR FILTRATION RATE 75 ML/MIN (60-); GLUCOSE 285 mg/dL (74-118); POTASSIUM 4.2 mmol/L (3.5-5.1); SODIUM 137 mmol/L (136-145)
[2021-04-04] MEDS ORDERED: METFORMIN HCL500 MG PO (13:23)
[2021-04-04] MEDS ORDERED: SULFASALAZINE500 MG PO (13:24)
[2021-04-04] MEDS ORDERED: SERTRALINE HCL100 MG PO (13:24)
[2021-04-04] MEDS ORDERED: BUPROPION XL150 MG PO (13:24)
[2021-04-04] MEDS ORDERED: DICYCLOMINE HCL20 MG PO (13:25)
[2021-04-04] MEDS ORDERED: ASPIRIN CHEW81 MG PO (13:25)
[2021-04-04] MEDS ORDERED: LISINOPRIL10 MG PO (13:26)
[2021-04-04] MEDS ORDERED: VALIUM10 MG PO (13:26)
[2021-04-04] MEDS ORDERED: PERCOCET 5-3251 EACH PO (13:29)
[2021-04-04] MEDS ORDERED: FARXIGA10 MG PO (13:29)
[2021-04-04] MEDS ORDERED: COLESTIPOL HCL1 GM PO (13:32)
[2021-04-04] MEDS ORDERED: CYCLOBENZAPRINE10 MG PO (13:32)
[2021-04-04] MEDS ORDERED: RYBELSUS3 MG ×2 (13:33→17:23)
[2021-04-04] MEDS ORDERED: MORPHINE SULFATE INJ 2 MG/ML SYR IV PRN (14:30)
[2021-04-04 16:24] VITALS: BP 97/77
[2021-04-04 16:35] VITALS: BP 97/77
[2021-04-04 16:52] VITALS: BP 97/77
[2021-04-04] MEDS ORDERED: SUMATRIPTAN SUC25 MG PO (17:16)
[2021-04-04] MEDS ORDERED: ZOLPIDEM TARTRAT5 MG PO (17:23)
[2021-04-04] MEDS ORDERED: HYDROXYZINE PAM25 MG PO (17:23)
[2021-04-04] MEDS ORDERED: DOXYCYCLINE HY100 MG PO (17:23)
[2021-04-04] MEDS ORDERED: ATORVASTATIN CA20 MG PO (17:23)
[2021-04-04] MEDS: SODIUM CHLORIDE 0.9% 1000ML 1,000 ML IV SCH (17:29)
[2021-04-04 19:01] LABS: CREATINE KINASE 56 IU/L (30-200)
[2021-04-04 19:19] LABS: CHOL/HDL RATIO 5.9 (3.9-4.7); CHOLESTEROL 165 MD/DL (0-199); HDL CHOLESTEROL 28 MG/DL (40-60); TRIGLYCERIDES 936 MG/DL (0-149)
[2021-04-04 19:38] LABS: THYROID STIMULATING HORMONE 0.282 uIU/mL (0.350-4.940)
[2021-04-04 20:00] VITALS: BP 116/85
[2021-04-04 21:10] VITALS: BP 116/85
[2021-04-04] MEDS: SERTRALINE HCL 100 MG TAB PO SCH (21:18)
[2021-04-04] MEDS: PANTOPRAZOLE SOD 40 MG TABEC PO SCH (21:18)
[2021-04-04] MEDS: ONDANSETRON HCL INJ 2MG/ML 2ML 2 MG/ML VIAL IV PRN (21:24)
[2021-04-04] MEDS: MORPHINE SULFATE INJ 4 MG/ML INJ 1ML IV PRN (21:25)
[2021-04-05] VITALS (15 sets, daily range): BP systolic 98–160; BP diastolic 57–88
[2021-04-05] MEDS: SODIUM CHLORIDE 0.9% 1000ML 1,000 ML IV SCH ×4 (00:08→20:14)
[2021-04-05] MEDS: MORPHINE SULFATE INJ 4 MG/ML INJ 1ML IV PRN (03:03)
[2021-04-05] MEDS: ONDANSETRON HCL INJ 2MG/ML 2ML 2 MG/ML VIAL IV PRN (03:03)
[2021-04-05 06:05] LABS: BASOPHILS % 0.3 % (0.0-1.0); EOSINOPHILS # (AUTO) 0.2 (0.0-0.4); EOSINOPHILS % 3.3 % (0.0-6.0); HEMATOCRIT 39.3 % (38.2-49.6); HEMOGLOBIN 13.8 g/dL (14.0-18.0); LYMPHOCYTES # (AUTO) 2.6 (1.0-3.2); LYMPHOCYTES % 41.9 % (18.0-39.1); MEAN CORPUSCULAR HEMOGLOBIN 30.1 pg (28-32); MEAN CORPUSCULAR HGB CONC 35.1 g/dL (31-35); MEAN CORPUSCULAR VOLUME 85.6 fL (81-99); MONOCYTES # (AUTO) 0.4 (0.2-0.8); MONOCYTES % 6.6 % (4.4-11.3); NEUTROPHILS # (AUTO) 2.9 (2.1-6.9); NEUTROPHILS % 47.4 % (38.7-80.0); PLATELET COUNT 220 x10e3/uL (140-360); RED BLOOD COUNT 4.59 x10e6/uL (4.3-5.7); RED CELL DISTRIBUTION WIDTH 13.6 % (11.7-14.4)
[2021-04-05 06:21] LABS: ALBUMIN 3.9 g/dL (3.5-5.0); ALBUMIN/GLOBULIN RATIO 1.9 (0.8-2.0); ANION GAP 12.7 mmol/L (8-16); CALCIUM 8.3 mg/dL (8.4-10.2); CREATININE, SERUM 0.83 mg/dL (0.72-1.25); POTASSIUM 3.7 mmol/L (3.5-5.1)
[2021-04-05 06:38] LABS: CREATINE KINASE 66 IU/L (30-200)
[2021-04-05] MEDS: BUPROPION HCL 150 MG TABCR PO SCH (10:00)
[2021-04-05] MEDS: PREGABALIN 75 MG CAP PO SCH (10:00)
[2021-04-05] MEDS: ASPIRIN 81 MG ENTERIC COATED PO SCH (10:00)
[2021-04-05] MEDS: OXYCODONE/ACETAMINOPHEN 5-325 1 EACH TABLET PO PRN (10:03)
[2021-04-05] MEDS ORDERED: MIDAZOLAM HCL 2 MG/2 ML VIAL ONE (16:38)
[2021-04-05] MEDS ORDERED: VERAPAMIL HCL 2.5 MG/ML 2 ML VIAL ONE (16:38)
[2021-04-05] MEDS ORDERED: HEPARIN SOD/SOD CHLORIDE 2,000 ML ONE (16:39)
[2021-04-05] MEDS ORDERED: LIDOCAINE HCL 2% LOCAL 20 ML VIAL ONE (16:39)
[2021-04-05] MEDS ORDERED: IOPAMIDOL 370 MG/ML 200 ML INFUS..BTL INJ ONE (16:39)
[2021-04-05] MEDS ORDERED: SODIUM CHLORIDE 0.9% 1000ML 1,000 ML ONE (16:39)
[2021-04-05] MEDS ORDERED: FENTANYL CITRATE/PF 100MCG/2 ML INJ ONE (16:39)
[2021-04-05] MEDS: PANTOPRAZOLE SOD 40 MG TABEC PO SCH (20:19)
[2021-04-05] MEDS: SERTRALINE HCL 100 MG TAB PO SCH (20:19)
[2021-04-06] MEDS: SODIUM CHLORIDE 0.9% 1000ML 1,000 ML IV SCH ×2 (00:33→05:28)
[2021-04-06] MEDS: OXYCODONE/ACETAMINOPHEN 5-325 1 EACH TABLET PO PRN ×2 (01:42→09:01)
[2021-04-06 05:22] VITALS: BP 111/84
[2021-04-06 06:01] LABS: BASOPHILS % 0.5 % (0.0-1.0); EOSINOPHILS # (AUTO) 0.2 (0.0-0.4); EOSINOPHILS % 3.3 % (0.0-6.0); HEMATOCRIT 38.8 % (38.2-49.6); HEMOGLOBIN 13.8 g/dL (14.0-18.0); LYMPHOCYTES # (AUTO) 1.9 (1.0-3.2); LYMPHOCYTES % 32.1 % (18.0-39.1); MEAN CORPUSCULAR HEMOGLOBIN 30.9 pg (28-32); MEAN CORPUSCULAR HGB CONC 35.6 g/dL (31-35); MEAN CORPUSCULAR VOLUME 86.8 fL (81-99); MONOCYTES # (AUTO) 0.3 (0.2-0.8); MONOCYTES % 5.9 % (4.4-11.3); NEUTROPHILS # (AUTO) 3.3 (2.1-6.9); NEUTROPHILS % 57.3 % (38.7-80.0); PLATELET COUNT 240 x10e3/uL (140-360); RED BLOOD COUNT 4.47 x10e6/uL (4.3-5.7); RED CELL DISTRIBUTION WIDTH 13.8 % (11.7-14.4)
[2021-04-06 06:23] LABS: ALBUMIN 3.8 g/dL (3.5-5.0); ALBUMIN/GLOBULIN RATIO 1.5 (0.8-2.0); ANION GAP 9.8 mmol/L (8-16); CALCIUM 8.4 mg/dL (8.4-10.2); CREATININE, SERUM 0.91 mg/dL (0.72-1.25); POTASSIUM 3.8 mmol/L (3.5-5.1)
[2021-04-06 07:34] VITALS: BP 118/85
[2021-04-06] MEDS ORDERED: ONDANSETRON HCL 4 MG ORAL DISINTEGRATING TAB PO PRN (08:00)
[2021-04-06] MEDS: PREGABALIN 75 MG CAP PO SCH (09:01)
[2021-04-06] MEDS: ASPIRIN 81 MG ENTERIC COATED PO SCH (09:01)
[2021-04-06] MEDS: BUPROPION HCL 150 MG TABCR PO SCH (09:01)
[2021-04-06 09:10] VITALS: BP 118/85
== END 2021-04-06 11:03 | disposition home or self-care (01) ==
LOC: ER 12:05 → ERHOLD 14:17 → MED/SURG 15:52
PROVIDERS: ADMIT Internal Medicine; ATTEND Internal Medicine
DX: I20.8 Other forms of angina pectoris (principal); I11.9 Hypertensive heart disease without heart failure; R07.9 Chest pain, unspecified; M06.9 Rheumatoid arthritis, unspecified; N28.9 Disorder of kidney and ureter, unspecified; I95.9 Hypotension, unspecified; E11.42 Type 2 diabetes mellitus with diabetic polyneuropathy; E78.1 Pure hyperglyceridemia; K76.0 Fatty (change of) liver, not elsewhere classified; Z79.82 Long term (current) use of aspirin; Z79.84 Long term (current) use of oral hypoglycemic drugs; Z20.822 Contact with and (suspected) exposure to COVID-19
CPT/HCPCS: 36415 ×3; 71045; 80053 ×3; 80061; 80307; 82550 ×2; 82553 ×2; 82948 ×3; 83690; 83880; 84443; 84484 ×2; 85025 ×3; 85379; 93005; 93458; 99284; C1887; G0378 ×3; J2001; J2250; J2270 ×2; J2405 ×2; J3010; J7030 ×3; Q9967; S0164 ×2; U0002; 99152

== ENCOUNTER 2021-10-31 19:11 | Emergency (ER) | payer OTHER ==
[~2021-10-31] VITALS: Ht 172.7 cm; Wt 90.7 kg
[~2021-10-31 19:11] MED LIST changes: +ASPIRIN CHEW81 MG PO; +ATORVASTATIN CA20 MG PO; +BUPROPION XL150 MG PO; +DOXYCYCLINE HY100 MG PO; +FARXIGA10 MG PO; +HYDROXYZINE PAM25 MG PO; +LISINOPRIL10 MG PO; +PERCOCET 5-3251 EACH PO; +RYBELSUS3 MG; +SUMATRIPTAN SUC25 MG PO; +VALIUM10 MG PO; +ZOLPIDEM TARTRAT5 MG PO
[2021-10-31 21:16] LABS: BASOPHILS % 0.4 % (0.0-1.0); EOSINOPHILS # (AUTO) 0.3 (0.0-0.4); HEMATOCRIT 45.5 % (38.2-49.6); HEMOGLOBIN 15.6 g/dL (14.0-18.0); LYMPHOCYTES # (AUTO) 3.5 (1.0-3.2); LYMPHOCYTES % 32.6 % (18.0-39.1); MEAN CORPUSCULAR HEMOGLOBIN 29.4 pg (28-32); MEAN CORPUSCULAR HGB CONC 34.3 g/dL (31-35); MEAN CORPUSCULAR VOLUME 85.8 fL (81-99); MONOCYTES # (AUTO) 0.6 (0.2-0.8); MONOCYTES % 5.6 % (4.4-11.3); NEUTROPHILS # (AUTO) 6.2 (2.1-6.9); NEUTROPHILS % 58.1 % (38.7-80.0); PLATELET COUNT 254 x10e3/uL (140-360); RED CELL DISTRIBUTION WIDTH 13.9 % (11.7-14.4)
[2021-10-31 21:38] LABS: ALBUMIN/GLOBULIN RATIO 1.5 (0.8-2.0); ANION GAP 15.3 mmol/L (8-16); CALCIUM 9.1 mg/dL (8.4-10.2); CREATININE, SERUM 1.15 mg/dL (0.72-1.25); POTASSIUM 3.3 mmol/L (3.5-5.1)
[2021-10-31 21:55] LABS: CLARITY,URINE CLEAR (CLEAR); COLOR,URINE YELLOW (YELLOW); KETONES,URINE NEGATIVE (NEGATIVE); LEUKOCYTE ESTERASE ,URINE NEGATIVE (NEGATIVE); NITRITE,URINE NEGATIVE (NEGATIVE); PROTEIN,URINE DIPSTICK NEGATIVE (NEGATIVE); URINE UROBILINOGEN 0.2 mg/dL (0.2 - 1)
[2021-10-31] MEDS ORDERED: KETOROLAC TROMETHAMINE 30 MG/ML VIAL IV STA (22:04)
[2021-10-31] MEDS ORDERED: IOPAMIDOL 370 MG/ML 200 ML INFUS..BTL INJ ONE (22:13)
[2021-10-31] MEDS ORDERED: SODIUM CHLORIDE 0.9% 50ML 50 ML ONE (22:13)
[2021-11-01] MEDS ORDERED: CEPHALEXIN500 MG PO (00:27)
[2021-11-01] MEDS ORDERED: CEPHALEXIN 500 MG CAP PO ONE (00:30)
== END 2021-11-01 00:53 | disposition home or self-care (01) ==
LOC: ER 19:30
DX: N39.0 Urinary tract infection, site not specified (principal); R10.9 Unspecified abdominal pain; E11.40 Type 2 diabetes mellitus with diabetic neuropathy, unspecified; J44.9 Chronic obstructive pulmonary disease, unspecified; K21.9 Gastro-esophageal reflux disease without esophagitis; M06.9 Rheumatoid arthritis, unspecified; M79.7 Fibromyalgia; F43.10 Post-traumatic stress disorder, unspecified; F41.9 Anxiety disorder, unspecified; M54.9 Dorsalgia, unspecified; G89.29 Other chronic pain; F17.210 Nicotine dependence, cigarettes, uncomplicated
CPT/HCPCS: 36415; 74177; 80053; 81001; 83690; 85025; 99284; J1885; Q9967

== ENCOUNTER 2021-11-16 15:56 | Emergency (ER) | payer OTHER ==
[~2021-11-16] VITALS: Ht 172.7 cm; Wt 87.7 kg
[~2021-11-16 15:56] MED LIST changes: +CEPHALEXIN500 MG PO
[2021-11-16] MEDS ORDERED: METOCLOPRAMIDE HCL 10 MG/2ML VIAL IV ONE (16:30)
[2021-11-16] MEDS ORDERED: SODIUM CHLORIDE 0.9% 1000ML 1,000 ML IV SCH (16:30)
[2021-11-16] MEDS ORDERED: KETOROLAC TROMETHAMINE 30 MG/ML VIAL IV STA (16:30)
[2021-11-16] MEDS ORDERED: METFORMIN HCL500 M2 PO (16:45)
[2021-11-16] MEDS ORDERED: PROMETHAZINE HC25 M1 PO (16:45)
[2021-11-16] MEDS ORDERED: FARXIGA10 MG (16:45)
[2021-11-16] MEDS ORDERED: OS-CAL 500+D T1 EACH PO (16:45)
[2021-11-16] MEDS ORDERED: HYDROCORTISONE30 G2 (16:45)
[2021-11-16] MEDS ORDERED: LAC-HYDRIN FIV226 GM TOP (16:45)
[2021-11-16] MEDS ORDERED: METHOTREXATE2.5 MG PO (16:45)
[2021-11-16] MEDS ORDERED: PROVENTIL HFA6.7 GM INH (16:45)
[2021-11-16] MEDS ORDERED: VICTOZA 3-0.6 MG/0.1 (16:45)
[2021-11-16] MEDS ORDERED: VISTARIL50 MG PO (16:45)
[2021-11-16] MEDS ORDERED: ZESTRIL10 MG PO (16:45)
[2021-11-16] MEDS ORDERED: GLIPIZIDE ER5 MG PO (16:45)
[2021-11-16] MEDS ORDERED: SODIUM CHLORIDE 0.9% 1000ML 1,000 ML ONE (17:05)
[2021-11-16] MEDS ORDERED: KETOROLAC TROMETHAMINE 30 MG/ML VIAL ONE (17:05)
[2021-11-16] MEDS ORDERED: METOCLOPRAMIDE HCL 10 MG/2ML VIAL ONE (17:05)
[2021-11-16] MEDS ORDERED: CEFTRIAXONE 1 GM in SODIUM CHLORIDE 0.9% 50ML 50 ML IV ONE (18:00)
[2021-11-16] MEDS ORDERED: CEFTRIAXONE 1 GM VIAL ONE (18:04)
[2021-11-16] MEDS ORDERED: SODIUM CHLORIDE 0.9% 50ML 50 ML ONE (18:04)
[2021-11-16] MEDS ORDERED: AMOX TR-K CLV1 EAC2 PO (18:12)
[2021-11-16] MEDS ORDERED: FIORICET 50-301 EACH PO (18:15)
== END 2021-11-16 18:25 | disposition home or self-care (01) ==
LOC: FSED 16:22
DX: R51.9 Headache, unspecified (principal); E11.65 Type 2 diabetes mellitus with hyperglycemia; J01.00 Acute maxillary sinusitis, unspecified; M79.7 Fibromyalgia; J44.9 Chronic obstructive pulmonary disease, unspecified; F43.10 Post-traumatic stress disorder, unspecified; M06.9 Rheumatoid arthritis, unspecified; Z20.822 Contact with and (suspected) exposure to COVID-19
CPT/HCPCS: 70450; 80053; 81003; 85025; 99284; J0696; J1885; J2765; J7030; U0002

== ENCOUNTER 2022-10-19 12:43 | Emergency (ER) | payer OTHER ==
[~2022-10-19] VITALS: Ht 172.7 cm; Wt 85.3 kg
[~2022-10-19 12:43] MED LIST changes: +AMOX TR-K CLV1 EAC2 PO; +FARXIGA10 MG; +FIORICET 50-301 EACH PO; +GLIPIZIDE ER5 MG PO; +HYDROCORTISONE30 G2; +LAC-HYDRIN FIV226 GM TOP; +METFORMIN HCL500 M2 PO; +OS-CAL 500+D T1 EACH PO; +PROMETHAZINE HC25 M1 PO; +PROVENTIL HFA6.7 GM INH; +VICTOZA 3-0.6 MG/0.1; +VISTARIL50 MG PO; +ZESTRIL10 MG PO
[2022-10-19] MEDS ORDERED: KETOROLAC TROMETHAMINE 60 MG/2 ML VIAL IM ONE (15:00)
[2022-10-19] MEDS ORDERED: KETOROLAC TROME10 MG PO (15:11)
[2022-10-19] MEDS ORDERED: KETOROLAC TROMETHAMINE 60 MG/2 ML VIAL ONE (15:12)
[2022-10-19] MEDS ORDERED: METHOCARBAMOL750 MG PO (15:13)
== END 2022-10-19 15:44 | disposition home or self-care (01) ==
LOC: FSED 13:17
DX: M54.50 Low back pain, unspecified (principal); W10.8XXA Fall (on) (from) other stairs and steps, initial encounter; Y93.01 Activity, walking, marching and hiking; Y92.89 Other specified places as the place of occurrence of the external cause; E11.9 Type 2 diabetes mellitus without complications; J44.9 Chronic obstructive pulmonary disease, unspecified; F41.9 Anxiety disorder, unspecified; K21.9 Gastro-esophageal reflux disease without esophagitis; M06.9 Rheumatoid arthritis, unspecified; M79.7 Fibromyalgia; F43.10 Post-traumatic stress disorder, unspecified; G89.29 Other chronic pain
CPT/HCPCS: 72100; 99283; J1885

== ENCOUNTER 2023-04-11 17:34 | Emergency (ER) | payer OTHER ==
[~2023-04-11] VITALS: Ht 172.7 cm; Wt 83.9 kg
[~2023-04-11 17:34] MED LIST changes: +KETOROLAC TROME10 MG PO
[2023-04-11 19:51] VITALS: BP 100/60; O2SAT 98
== END 2023-04-11 19:45 | disposition home or self-care (01) ==
LOC: ER 17:49
DX: R20.0 Anesthesia of skin (principal); M50.30 Other cervical disc degeneration, unspecified cervical region; J44.9 Chronic obstructive pulmonary disease, unspecified; E11.9 Type 2 diabetes mellitus without complications; F41.8 Other specified anxiety disorders; K21.9 Gastro-esophageal reflux disease without esophagitis; G89.29 Other chronic pain; M54.9 Dorsalgia, unspecified
CPT/HCPCS: 72125; 93005; 99283

== ENCOUNTER 2024-09-05 10:13 | Emergency (ER) | payer OTHER ==
[~2024-09-05] VITALS: Ht 172.7 cm; Wt 78.5 kg
[2024-09-05 10:16] VITALS: PULSE 111; RESP 18; TEMP 98.2; O2SAT 98
[2024-09-05] MEDS ORDERED: DOXYCYCLINE HY100 MG PO (10:41)
[2024-09-05] MEDS: CEFTRIAXONE 1 GM VIAL IM ONE (11:05)
== END 2024-09-05 11:27 | disposition home or self-care (01) ==
LOC: FSED 10:32
DX: N34.2 Other urethritis (principal); E11.9 Type 2 diabetes mellitus without complications; J44.9 Chronic obstructive pulmonary disease, unspecified; E78.5 Hyperlipidemia, unspecified; M06.9 Rheumatoid arthritis, unspecified; M79.7 Fibromyalgia; F41.9 Anxiety disorder, unspecified; M54.9 Dorsalgia, unspecified; G89.29 Other chronic pain; F17.210 Nicotine dependence, cigarettes, uncomplicated
CPT/HCPCS: 99283; J0696

== ENCOUNTER 2024-12-12 15:52 | Inpatient (IN) | payer MEDICAID, OTHER ==
[~2024-12-12] VITALS: Ht 172.7 cm; Wt 78.0 kg
[2024-12-12] MEDS: KETOROLAC TROMETHAMINE 30 MG/ML VIAL IV STA (16:44)
[2024-12-12] MEDS: FAMOTIDINE 20 MG/2 ML VIAL IV STA (16:44)
[2024-12-12] MEDS: ONDANSETRON HCL INJ 2MG/ML 2ML 2 MG/ML VIAL IV STA ×2 (16:44→18:10)
[2024-12-12] MEDS: SODIUM CHLORIDE 0.9% 1000ML 1,000 ML IV ONE (17:26)
[2024-12-12] MEDS: Morphine 4mg INJECTION 4 MG/ML INJ IV ONE (18:11)
[2024-12-12] MEDS ORDERED: IOPAMIDOL 370 MG/ML 100 ML INFUS..BTL INJ ONE (18:33)
[2024-12-12] MEDS ORDERED: Morphine 2mg Syringe 2 MG/ML SYR IV PRN (19:00)
[2024-12-12] MEDS: SODIUM CHLORIDE 0.9% 1000ML 1,000 ML IV SCH (19:35)
[2024-12-12] MEDS: PROMETHAZINE HCL (IM) 25 MG/ML VIAL IM ONE (19:35)
[2024-12-12 20:20] VITALS: PULSE 93; RESP 18; TEMP 98.3
[2024-12-12 23:00] VITALS: BP 109/67; PULSE 93; RESP 18; TEMP 98.3; O2SAT 97
[2024-12-13] VITALS (10 sets, daily range): BP systolic 112–148; BP diastolic 66–97; PULSE 70–109; RESP 18–20; TEMP 97.7–98.2; O2SAT 91–100
[2024-12-13] MEDS: Morphine 4mg INJECTION 4 MG/ML INJ IV PRN (00:14)
[2024-12-13] MEDS: ONDANSETRON HCL INJ 2MG/ML 2ML 2 MG/ML VIAL IV PRN (00:35)
[2024-12-13 08:14] LABS: BILIRUBIN,URINE NEGATIVE (NEGATIVE); CLARITY,URINE CLEAR (CLEAR); COLOR,URINE YELLOW (YELLOW); GLUCOSE, URINE 500 (NEGATIVE); KETONES,URINE TRACE (NEGATIVE); LEUKOCYTE ESTERASE ,URINE NEGATIVE (NEGATIVE); NITRITE,URINE NEGATIVE (NEGATIVE); PH,URINE 6 (5 - 7); PROTEIN,URINE DIPSTICK TRACE (NEGATIVE); URINE UROBILINOGEN 0.2 mg/dL (0.2 - 1)
[2024-12-13 08:15] LABS: BACTERIA,URINE FEW /HPF; EPITHELIAL CELLS,URINE FEW /LPF; RBC,URINE 0-5 /HPF (0-5); WBC,URINE (MAN) 0-5 /HPF (0-5)
[2024-12-13] MEDS ORDERED: PROMETHAZINE HCL (IM) 25 MG/ML VIAL IM PRN (10:00)
[2024-12-13] MEDS: DEXTROSE 5%/0.9% SOD CHL 1,000 ML IV SCH (10:08)
[2024-12-13 12:23] LABS: BASOPHILS % 0.3 % (0.0-1.0); EOSINOPHILS # (AUTO) 0.1 (0.0-0.4); EOSINOPHILS % 0.6 % (0.0-6.0); HEMATOCRIT 45.7 % (38.2-49.6); HEMOGLOBIN 16.6 g/dL (14.0-18.0); LYMPHOCYTES # (AUTO) 0.9 (1.0-3.2); MEAN CORPUSCULAR HEMOGLOBIN 33.7 pg (28-32); MEAN CORPUSCULAR HGB CONC 36.3 g/dL (31-35); MEAN CORPUSCULAR VOLUME 92.9 fL (81-99); MONOCYTES # (AUTO) 0.4 (0.2-0.8); MONOCYTES % 3.6 % (4.4-11.3); NEUTROPHILS # (AUTO) 9.6 (2.1-6.9); NEUTROPHILS % 87.1 % (38.7-80.0); PLATELET COUNT 220 x10e3/uL (140-360); RED BLOOD COUNT 4.92 x10e6/uL (4.3-5.7); RED CELL DISTRIBUTION WIDTH 12.9 % (11.7-14.4); WHITE BLOOD COUNT 11.04 x10e3/uL (4.8-10.8)
[2024-12-13 12:40] LABS: ALBUMIN 4.1 g/dL (3.5-5.0); ALBUMIN/GLOBULIN RATIO 1.4 (0.8-2.0); ANION GAP 18.1 mmol/L (8-16); BILIRUBIN,TOTAL 0.7 mg/dL (0.2-1.2); CALCIUM 9.3 mg/dL (8.4-10.2); CREATININE, SERUM 0.8 mg/dL (0.72-1.25); MAGNESIUM 2.2 MG/DL (1.3-2.1); PHOSPHORUS 3.3 MG/DL (2.3-4.7); POTASSIUM 4.1 mmol/L (3.5-5.1); TOTAL PROTEIN 7.1 g/dL (6.5-8.1)
[2024-12-13] MEDS ORDERED: SIMETHICONE 80 MG CHEW PO PRN (15:00)
[2024-12-13] MEDS ORDERED: MELATONIN 5 MG TABLET PO PRN (15:00)
[2024-12-13] MEDS ORDERED: BENZONATATE 100 MG CAP PO PRN (15:00)
[2024-12-13] MEDS ORDERED: DIPHENHYDRAMINE HCL 25 MG CAP PO PRN (15:00)
[2024-12-13] MEDS ORDERED: LIDOCAINE 4% PATCH TP PRN (15:00)
[2024-12-13] MEDS ORDERED: HYDRALAZINE HCL 20 MG/ML VIAL IV PRN (15:00)
[2024-12-13] MEDS ORDERED: DEXTROSE 50% SYRINGE 50 ML IV PRN (15:00)
[2024-12-13] MEDS: BISACODYL 10 MG SUPP PR ONE (16:18)
[2024-12-13] MEDS: ENOXAPARIN SOD INJ 40 MG/0.4 ML SYR SC SCH (16:19)
[2024-12-13] MEDS ORDERED: JARDIANCE25 MG PO (18:05)
[2024-12-13] MEDS ORDERED: ESCITALOPRAM OX10 MG PO (18:05)
[2024-12-13] MEDS ORDERED: ROPINIROLE HCL0.5 MG PO (18:05)
[2024-12-13] MEDS: PROMETHAZINE 12.5MG/ NACL 0.9% 12.5 MG/50 ML BAG IV PRN (20:05)
[2024-12-14] VITALS (10 sets, daily range): BP systolic 116–137; BP diastolic 78–95; PULSE 85–123; RESP 17–22; TEMP 97.5–99; O2SAT 97–100
[2024-12-14] MEDS: PROMETHAZINE 12.5MG/ NACL 0.9% 12.5 MG/50 ML BAG IV PRN (01:13)
[2024-12-14 06:02] LABS: BASOPHILS % 0.6 % (0.0-1.0); EOSINOPHILS % 0.6 % (0.0-6.0); HEMATOCRIT 47.1 % (38.2-49.6); HEMOGLOBIN 16.6 g/dL (14.0-18.0); LYMPHOCYTES # (AUTO) 0.8 (1.0-3.2); LYMPHOCYTES % 14.7 % (18.0-39.1); MEAN CORPUSCULAR HEMOGLOBIN 33.5 pg (28-32); MEAN CORPUSCULAR HGB CONC 35.2 g/dL (31-35); MONOCYTES # (AUTO) 0.6 (0.2-0.8); MONOCYTES % 11.6 % (4.4-11.3); NEUTROPHILS # (AUTO) 3.9 (2.1-6.9); NEUTROPHILS % 72.3 % (38.7-80.0); PLATELET COUNT 221 x10e3/uL (140-360); RED BLOOD COUNT 4.96 x10e6/uL (4.3-5.7); RED CELL DISTRIBUTION WIDTH 12.9 % (11.7-14.4); WHITE BLOOD COUNT 5.43 x10e3/uL (4.8-10.8)
[2024-12-14 06:38] LABS: ANION GAP 18.9 mmol/L (8-16); CALCIUM 8.9 mg/dL (8.4-10.2); CREATININE, SERUM 0.81 mg/dL (0.72-1.25); POTASSIUM 3.9 mmol/L (3.5-5.1)
[2024-12-14] MEDS ORDERED: PANTOPRAZOLE SOD 40 MG TABEC PO SCH (07:30)
[2024-12-15] VITALS (11 sets, daily range): BP systolic 111–152; BP diastolic 72–97; PULSE 97–107; RESP 17–20; TEMP 97.2–98.5; O2SAT 97–100
[2024-12-15] MEDS ORDERED: PROPOFOL IV EMULSION 10 MG/ML 20 ML VIAL ONE (12:19)
[2024-12-15] MEDS ORDERED: ROCURONIUM BROMIDE 1 ML IV ONE (12:19)
[2024-12-15] MEDS ORDERED: FENTANYL CITRATE/PF 100MCG/2 ML INJ ONE (12:19)
[2024-12-15] MEDS ORDERED: SEVOFLURANE INHAL SOLN 250 ML PEN BTL ONE (12:19)
[2024-12-15] MEDS ORDERED: ACETAMINOPHEN 1000 MG/100 ML 100 ML IV ONE (12:19)
[2024-12-15] MEDS ORDERED: LIDOCAINE HCL 2% LOCAL INJ 5 ML SDV VIAL INJ ONE (12:19)
[2024-12-15] MEDS ORDERED: SUCCINYLCHOLINE CHLORIDE 20 MG/ML 10ML VIAL ONE (12:19)
[2024-12-15] MEDS ORDERED: ONDANSETRON HCL INJ 2MG/ML 2ML 2 MG/ML VIAL ONE ×2 (13:14→13:41)
[2024-12-15] MEDS ORDERED: FAMOTIDINE 20 MG/2 ML VIAL IV ONE (13:14)
[2024-12-15] MEDS ORDERED: DEXAMETHASONE SOD PHOS INJ 4 MG/ML SDV ONE (13:41)
[2024-12-15] MEDS ORDERED: KETAMINE 50MG/5ML SYR ONE (13:41)
[2024-12-15] MEDS ORDERED: SODIUM CHLORIDE 0.9% 1000ML 1,000 ML ONE (14:07)
[2024-12-15] MEDS ORDERED: SUGAMMADEX SODIUM 200 MG/2 ML VIAL IV ONE (14:08)
[2024-12-15] MEDS ORDERED: ACETAMINOPHEN 1000 MG/100 ML IV PRN (14:45)
[2024-12-15] MEDS ORDERED: ONDANSETRON HCL INJ 2MG/ML 2ML 2 MG/ML VIAL IV PRN (14:45)
[2024-12-15] MEDS ORDERED: NALOXONE HCL INJ 0.4 MG/ML AMP IV PRN (14:45)
[2024-12-15] MEDS: FENTANYL CITRATE/PF 100MCG/2 ML INJ ONE (14:58)
[2024-12-15] MEDS: MORPHINE SULFATE 1 MG/ML 30ML PCA IV PRN (15:11)
[2024-12-15] MEDS: SODIUM CHLORIDE 0.9% 250ML IRRIG IR SCH (17:50)
[2024-12-15] MEDS: DEXTROSE 5%/LACTATED RINGERS 1,000 ML IV SCH (18:03)
[2024-12-15] MEDS ORDERED: GLUCAGON FOR INJ 1 MG VIAL ONE (18:26)
[2024-12-15] MEDS: BUPIVACAINE LIPOSOME/PF 266 MG/20 ML IJ ONE (20:27)
[2024-12-15] MEDS: CEFAZOLIN SODIUM 2 GM in SODIUM CHLORIDE 0.9% 100 ML IV SCH (20:44)
[2024-12-16] VITALS (10 sets, daily range): BP systolic 112–120; BP diastolic 62–76; PULSE 92–107; RESP 16–20; TEMP 97.5–99.2; O2SAT 94–97
[2024-12-16 05:54] LABS: BASOPHILS % 0.5 % (0.0-1.0); EOSINOPHILS % 0.2 % (0.0-6.0); HEMATOCRIT 40.7 % (38.2-49.6); HEMOGLOBIN 14.1 g/dL (14.0-18.0); LYMPHOCYTES # (AUTO) 0.6 (1.0-3.2); LYMPHOCYTES % 15.2 % (18.0-39.1); MEAN CORPUSCULAR HEMOGLOBIN 33.3 pg (28-32); MEAN CORPUSCULAR HGB CONC 34.6 g/dL (31-35); MEAN CORPUSCULAR VOLUME 96.2 fL (81-99); MONOCYTES # (AUTO) 0.6 (0.2-0.8); MONOCYTES % 15.2 % (4.4-11.3); NEUTROPHILS # (AUTO) 2.8 (2.1-6.9); NEUTROPHILS % 68.7 % (38.7-80.0); PLATELET COUNT 199 x10e3/uL (140-360); RED BLOOD COUNT 4.23 x10e6/uL (4.3-5.7); RED CELL DISTRIBUTION WIDTH 12.8 % (11.7-14.4); WHITE BLOOD COUNT 4.07 x10e3/uL (4.8-10.8)
[2024-12-16 06:26] LABS: ANION GAP 14.7 mmol/L (8-16); CALCIUM 8.3 mg/dL (8.4-10.2); CREATININE, SERUM 0.78 mg/dL (0.72-1.25); POTASSIUM 3.7 mmol/L (3.5-5.1)
[2024-12-16 09:46] LABS: BAND NEUTROPHILS % (MANUAL) 13 %; LYMPHOCYTES % (MANUAL) 15 % (19-48); MONOCYTES % (MANUAL) 11 % (3.4-9.0); NEUTROPHILS % (MANUAL) 55 % (40-74); PLATELET ESTIMATE ADEQUATE; PLATELET MORPHOLOGY COMMENT NORMAL; REACTIVE LYMPHOCYTES 6
[2024-12-16] MEDS: KETOROLAC TROMETHAMINE 30 MG/ML VIAL IV PRN (23:04)
[2024-12-17] VITALS (10 sets, daily range): BP systolic 99–129; BP diastolic 72–91; PULSE 90–108; RESP 16–20; TEMP 97.3–98.2; O2SAT 96–99
[2024-12-17 05:33] LABS: BASOPHILS % 0.6 % (0.0-1.0); EOSINOPHILS # (AUTO) 0.2 (0.0-0.4); EOSINOPHILS % 5.7 % (0.0-6.0); LYMPHOCYTES # (AUTO) 1.2 (1.0-3.2); LYMPHOCYTES % 33.2 % (18.0-39.1); MEAN CORPUSCULAR HEMOGLOBIN 33.5 pg (28-32); MEAN CORPUSCULAR HGB CONC 35.1 g/dL (31-35); MEAN CORPUSCULAR VOLUME 95.4 fL (81-99); MONOCYTES # (AUTO) 0.7 (0.2-0.8); MONOCYTES % 19.8 % (4.4-11.3); NEUTROPHILS # (AUTO) 1.4 (2.1-6.9); NEUTROPHILS % 40.1 % (38.7-80.0); PLATELET COUNT 199 x10e3/uL (140-360); RED BLOOD COUNT 3.88 x10e6/uL (4.3-5.7); RED CELL DISTRIBUTION WIDTH 12.7 % (11.7-14.4); WHITE BLOOD COUNT 3.49 x10e3/uL (4.8-10.8)
[2024-12-17] MEDS: CHLORASEPTIC SPRAY 177 ML BTL MM PRN (05:39)
[2024-12-17 05:55] LABS: ANION GAP 11.3 mmol/L (8-16); CALCIUM 8.4 mg/dL (8.4-10.2); CREATININE, SERUM 0.67 mg/dL (0.72-1.25)
[2024-12-17 05:58] LABS: POTASSIUM 3.3 mmol/L (3.5-5.1)
[2024-12-17 07:16] LABS: BAND NEUTROPHILS % (MANUAL) 5 %; EOSINOPHILS % (MANUAL) 5 % (0-7); LYMPHOCYTES % (MANUAL) 33 % (19-48); MONOCYTES % (MANUAL) 17 % (3.4-9.0); NEUTROPHILS % (MANUAL) 38 % (40-74); PLATELET ESTIMATE ADEQUATE; PLATELET MORPHOLOGY COMMENT NORMAL; RBC MORPHOLOGY COMMENT NORMAL; REACTIVE LYMPHOCYTES 2
[2024-12-18] VITALS (9 sets, daily range): BP systolic 119–144; BP diastolic 72–95; PULSE 85–103; RESP 16–22; TEMP 98.2–99.8; O2SAT 95–100
[2024-12-18] MEDS: DIPHENHYDRAMINE HCL INJ 50 MG/ML VIAL IM PRN (00:47)
[2024-12-18 05:34] LABS: BASOPHILS % 0.2 % (0.0-1.0); EOSINOPHILS # (AUTO) 0.1 (0.0-0.4); EOSINOPHILS % 3.1 % (0.0-6.0); HEMATOCRIT 36.2 % (38.2-49.6); HEMOGLOBIN 12.9 g/dL (14.0-18.0); MEAN CORPUSCULAR HEMOGLOBIN 33.2 pg (28-32); MEAN CORPUSCULAR HGB CONC 35.6 g/dL (31-35); MEAN CORPUSCULAR VOLUME 93.3 fL (81-99); MONOCYTES # (AUTO) 0.7 (0.2-0.8); MONOCYTES % 17.1 % (4.4-11.3); NEUTROPHILS # (AUTO) 2.3 (2.1-6.9); NEUTROPHILS % 54.1 % (38.7-80.0); PLATELET COUNT 211 x10e3/uL (140-360); RED BLOOD COUNT 3.88 x10e6/uL (4.3-5.7); RED CELL DISTRIBUTION WIDTH 12.4 % (11.7-14.4); WHITE BLOOD COUNT 4.16 x10e3/uL (4.8-10.8)
[2024-12-18 06:03] LABS: ANION GAP 13.9 mmol/L (8-16); CALCIUM 8.5 mg/dL (8.4-10.2); CREATININE, SERUM 0.65 mg/dL (0.72-1.25)
[2024-12-18 06:07] LABS: POTASSIUM 2.9 mmol/L (3.5-5.1)
[2024-12-18] MEDS: POTASSIUM CHLORIDE 20 MEQ TAB CR PO PRN (06:31)
[2024-12-18 06:37] LABS: BAND NEUTROPHILS % (MANUAL) 5 %; EOSINOPHILS % (MANUAL) 3 % (0-7); LYMPHOCYTES % (MANUAL) 22 % (19-48); MONOCYTES % (MANUAL) 16 % (3.4-9.0); NEUTROPHILS % (MANUAL) 51 % (40-74); REACTIVE LYMPHOCYTES 3
[2024-12-18 06:38] LABS: PLATELET ESTIMATE ADEQUATE; PLATELET MORPHOLOGY COMMENT NORMAL; RBC MORPHOLOGY COMMENT NORMAL
[2024-12-18] MEDS: POTASSIUM CHLORIDE 20MEQ/100ML 100 ML IV SCH (14:51)
[2024-12-18] MEDS: PERIPHERAL TPN FORMULA 1 BAG IV SCH (20:55)
[2024-12-18] MEDS: POTASSIUM CHLORIDE 20MEQ/100ML 100 ML ONE (23:20)
[2024-12-19] VITALS (13 sets, daily range): BP systolic 109–152; BP diastolic 76–91; PULSE 80–101; RESP 18–20; TEMP 97.8–99.6; O2SAT 95–99
[2024-12-19 05:47] LABS: BASOPHILS % 0.2 % (0.0-1.0); EOSINOPHILS # (AUTO) 0.1 (0.0-0.4); EOSINOPHILS % 2.6 % (0.0-6.0); HEMATOCRIT 36.6 % (38.2-49.6); HEMOGLOBIN 13.2 g/dL (14.0-18.0); LYMPHOCYTES # (AUTO) 1.1 (1.0-3.2); LYMPHOCYTES % 20.7 % (18.0-39.1); MEAN CORPUSCULAR HEMOGLOBIN 33.4 pg (28-32); MEAN CORPUSCULAR HGB CONC 36.1 g/dL (31-35); MEAN CORPUSCULAR VOLUME 92.7 fL (81-99); MONOCYTES % 17.5 % (4.4-11.3); NEUTROPHILS # (AUTO) 3.2 (2.1-6.9); NEUTROPHILS % 58.4 % (38.7-80.0); PLATELET COUNT 243 x10e3/uL (140-360); RED BLOOD COUNT 3.95 x10e6/uL (4.3-5.7); RED CELL DISTRIBUTION WIDTH 12.2 % (11.7-14.4); WHITE BLOOD COUNT 5.42 x10e3/uL (4.8-10.8)
[2024-12-19 06:12] LABS: ANION GAP 13.3 mmol/L (8-16); CALCIUM 8.5 mg/dL (8.4-10.2); CREATININE, SERUM 0.66 mg/dL (0.72-1.25)
[2024-12-19 06:15] LABS: POTASSIUM 3.3 mmol/L (3.5-5.1)
[2024-12-19] MEDS ORDERED: HYDROMORPHONE 1MG/1ML INJ IV PRN (16:30)
[2024-12-19] MEDS ORDERED: HYDROMORPHONE 2MG/ML IV PRN (19:00)
[2024-12-19] MEDS: HYDROMORPHONE 1MG/1ML INJ IV PRN (19:43)
[2024-12-19] MEDS: PERIPHERAL TPN FORMULA 1 BAG IV SCH (20:30)
[2024-12-20] VITALS (8 sets, daily range): BP systolic 113–138; BP diastolic 82–91; PULSE 87–98; RESP 17–19; TEMP 97.6–99; O2SAT 95–98
[2024-12-20] MEDS: ACETAMINOPHEN 325 MG TAB PO PRN (17:50)
[2024-12-21] VITALS (11 sets, daily range): BP systolic 116–130; BP diastolic 77–86; PULSE 64–97; RESP 17–20; TEMP 98.2–99.3; O2SAT 94–100
[2024-12-21] MEDS: HYDROMORPHONE 1MG/1ML INJ IV PRN (02:29)
[2024-12-21 06:12] LABS: BASOPHILS % 0.3 % (0.0-1.0); EOSINOPHILS # (AUTO) 0.2 (0.0-0.4); EOSINOPHILS % 1.9 % (0.0-6.0); HEMATOCRIT 40.1 % (38.2-49.6); HEMOGLOBIN 14.5 g/dL (14.0-18.0); LYMPHOCYTES # (AUTO) 1.2 (1.0-3.2); LYMPHOCYTES % 13.5 % (18.0-39.1); MEAN CORPUSCULAR HEMOGLOBIN 33.3 pg (28-32); MEAN CORPUSCULAR HGB CONC 36.2 g/dL (31-35); NEUTROPHILS # (AUTO) 6.4 (2.1-6.9); NEUTROPHILS % 72.4 % (38.7-80.0); PLATELET COUNT 287 x10e3/uL (140-360); RED BLOOD COUNT 4.36 x10e6/uL (4.3-5.7); RED CELL DISTRIBUTION WIDTH 12.2 % (11.7-14.4); WHITE BLOOD COUNT 8.81 x10e3/uL (4.8-10.8)
[2024-12-21 06:37] LABS: ANION GAP 15.6 mmol/L (8-16); CALCIUM 8.6 mg/dL (8.4-10.2); CREATININE, SERUM 0.57 mg/dL (0.72-1.25); PHOSPHORUS 3.1 MG/DL (2.3-4.7); POTASSIUM 3.6 mmol/L (3.5-5.1)
[2024-12-21] MEDS: PERIPHERAL TPN FORMULA 1 BAG IV SCH (20:52)
[2024-12-22] VITALS (9 sets, daily range): BP systolic 119–141; BP diastolic 74–84; PULSE 68–94; RESP 18–21; TEMP 98.3–99.8; O2SAT 96–100
[2024-12-22] MEDS: HYDROMORPHONE 2MG/ML IV PRN (12:43)
[2024-12-22] MEDS: HYDROMORPHONE 1MG/1ML INJ IV PRN (16:29)
[2024-12-22] MEDS: HYDROCODONE/APAP 5MG-325MG TAB PO PRN (16:29)
[2024-12-22] MEDS: ESCITALOPRAM OXALATE 10 MG TAB PO SCH (16:30)
[2024-12-23] VITALS (9 sets, daily range): BP systolic 108–119; BP diastolic 72–86; PULSE 83–99; RESP 17–19; TEMP 97.8–99; O2SAT 94–100
[2024-12-23 06:37] LABS: ALBUMIN 2.7 g/dL (3.5-5.0); ALBUMIN/GLOBULIN RATIO 0.8 (0.8-2.0); ANION GAP 12.9 mmol/L (8-16); BILIRUBIN,TOTAL 0.5 mg/dL (0.2-1.2); CALCIUM 8.4 mg/dL (8.4-10.2); CREATININE, SERUM 0.63 mg/dL (0.72-1.25); PHOSPHORUS 3.7 MG/DL (2.3-4.7); POTASSIUM 3.9 mmol/L (3.5-5.1); TOTAL PROTEIN 5.9 g/dL (6.5-8.1)
[2024-12-23] MEDS: ALBUTEROL/IPRATROPIUM 3 ML NEB NEB PRN (08:25)
[2024-12-23] MEDS: PERIPHERAL TPN FORMULA 1 BAG IV SCH (20:07)
[2024-12-24] VITALS (9 sets, daily range): BP systolic 107–143; BP diastolic 73–93; PULSE 64–92; RESP 18–20; TEMP 97.6–99; O2SAT 94–100
[2024-12-24 06:09] LABS: ALBUMIN 3.2 g/dL (3.5-5.0); ALBUMIN/GLOBULIN RATIO 0.9 (0.8-2.0); ANION GAP 14.9 mmol/L (8-16); CALCIUM 9.1 mg/dL (8.4-10.2); CREATININE, SERUM 0.71 mg/dL (0.72-1.25); POTASSIUM 3.9 mmol/L (3.5-5.1); TOTAL PROTEIN 6.8 g/dL (6.5-8.1)
[2024-12-24 06:24] LABS: BILIRUBIN,TOTAL 0.6 mg/dL (0.2-1.2)
[2024-12-25] VITALS (10 sets, daily range): BP systolic 102–156; BP diastolic 63–82; PULSE 72–84; RESP 18–20; TEMP 97.2–98.6; O2SAT 95–100
[2024-12-25 08:30] LABS: ALBUMIN/GLOBULIN RATIO 0.9 (0.8-2.0); ANION GAP 12.3 mmol/L (8-16); BILIRUBIN,TOTAL 0.4 mg/dL (0.2-1.2); CALCIUM 8.6 mg/dL (8.4-10.2); CREATININE, SERUM 0.72 mg/dL (0.72-1.25); POTASSIUM 4.3 mmol/L (3.5-5.1); TOTAL PROTEIN 6.5 g/dL (6.5-8.1)
[2024-12-25] MEDS: DOCUSATE SODIUM 100 MG CAP PO PRN (19:48)
[2024-12-26] VITALS (7 sets, daily range): BP systolic 104–117; BP diastolic 66–87; PULSE 76–86; RESP 17–18; TEMP 97.8–98.5; O2SAT 95–100
[2024-12-26 05:52] LABS: ALBUMIN 3.2 g/dL (3.5-5.0); ALBUMIN/GLOBULIN RATIO 0.9 (0.8-2.0); ANION GAP 12.9 mmol/L (8-16); BILIRUBIN,TOTAL 0.3 mg/dL (0.2-1.2); CALCIUM 8.6 mg/dL (8.4-10.2); CREATININE, SERUM 0.71 mg/dL (0.72-1.25); POTASSIUM 3.9 mmol/L (3.5-5.1); TOTAL PROTEIN 6.7 g/dL (6.5-8.1)
[2024-12-26 14:33] LABS: HEMATOCRIT 38.6 % (38.2-49.6); HEMOGLOBIN 13.9 g/dL (14.0-18.0)
[2024-12-26] MEDS: HYDROCODONE/APAP 5MG-325MG TAB PO ONE (14:49)
== END 2024-12-26 16:40 | disposition home or self-care (01) | DRG 330 ==
LOC: FSED 16:12 → MED/SURG2 18:46
PROVIDERS: ADMIT Internal Medicine; ATTEND Internal Medicine
PROC: 0DBB0ZZ Excision of Ileum, Open Approach (ICD-10-PCS; principal; 2024-12-15 13:34)
PROC: 0DNB0ZZ Release Ileum, Open Approach (ICD-10-PCS; principal; 2024-12-15 13:34)
DX: K56.50 Intestinal adhesions [bands], unspecified as to partial versus complete obstruction (principal); F11.20 Opioid dependence, uncomplicated; Q43.0 Meckel's diverticulum (displaced) (hypertrophic); E11.9 Type 2 diabetes mellitus without complications; I10 Essential (primary) hypertension; K76.0 Fatty (change of) liver, not elsewhere classified; J44.9 Chronic obstructive pulmonary disease, unspecified; K56.7 Ileus, unspecified; F41.9 Anxiety disorder, unspecified; F32.A Depression, unspecified; G89.4 Chronic pain syndrome; K21.9 Gastro-esophageal reflux disease without esophagitis; E78.5 Hyperlipidemia, unspecified; M54.9 Dorsalgia, unspecified; M19.90 Unspecified osteoarthritis, unspecified site; M06.9 Rheumatoid arthritis, unspecified; M79.7 Fibromyalgia; E11.40 Type 2 diabetes mellitus with diabetic neuropathy, unspecified; F43.10 Post-traumatic stress disorder, unspecified; R11.2 Nausea with vomiting, unspecified; F10.20 Alcohol dependence, uncomplicated; Z91.118 Patient's noncompliance with dietary regimen for other reason; Z79.85 Long-term (current) use of injectable non-insulin antidiabetic drugs; Z79.84 Long term (current) use of oral hypoglycemic drugs; Z79.82 Long term (current) use of aspirin; Z90.49 Acquired absence of other specified parts of digestive tract; Z88.0 Allergy status to penicillin; Z88.6 Allergy status to analgesic agent; Z88.1 Allergy status to other antibiotic agents; Z88.5 Allergy status to narcotic agent; F17.200 Nicotine dependence, unspecified, uncomplicated
CPT/HCPCS: 36415; 36568; 71045; 74018; 74019; 74177; 80048; 80053; 80076; 81001; 81003; 82948; 83735; 84100; 85014; 85018; 85025; 88304; 88307; 94799; 99284; J0330; J0666; J0690; J1100; J1171; J1200; J1610; J1650; J1885; J2003; J2270; J2405; J2470; J2550; J3480; J7030; J7042; J7050; Q9967

== ENCOUNTER 2024-12-28 18:47 | Emergency (ER) | payer MEDICAID ==
[~2024-12-28] VITALS: Ht 172.7 cm; Wt 76.2 kg
[~2024-12-28 18:47] MED LIST changes: +ESCITALOPRAM OX10 MG PO; +JARDIANCE25 MG PO; +ROPINIROLE HCL0.5 MG PO
[2024-12-28] MEDS ORDERED: CEFEPIME 2 GM VIAL ONE (18:57)
[2024-12-28] MEDS ORDERED: SODIUM CHLORIDE 0.9% 1000ML 1,000 ML ONE (18:57)
[2024-12-28] MEDS ORDERED: SODIUM CHLORIDE 0.9% 100 ML ONE (18:57)
[2024-12-28] MEDS ORDERED: ACETAMINOPHEN 1000 MG/100 ML 100 ML IV ONE (18:57)
[2024-12-28] MEDS: SODIUM CHLORIDE 0.9% 1000ML 1,000 ML IV ONE (19:10)
[2024-12-28] MEDS: ACETAMINOPHEN 1000 MG/100 ML IV ONE (19:11)
[2024-12-28 19:18] LABS: BASOPHILS % 0.5 % (0.0-1.0); EOSINOPHILS # (AUTO) 0.1 (0.0-0.4); HEMATOCRIT 37.2 % (38.2-49.6); HEMOGLOBIN 13.4 g/dL (14.0-18.0); LYMPHOCYTES # (AUTO) 0.8 (1.0-3.2); LYMPHOCYTES % 14.7 % (18.0-39.1); MEAN CORPUSCULAR HEMOGLOBIN 32.9 pg (28-32); MEAN CORPUSCULAR VOLUME 91.4 fL (81-99); MONOCYTES # (AUTO) 0.5 (0.2-0.8); MONOCYTES % 9.3 % (4.4-11.3); NEUTROPHILS # (AUTO) 4.1 (2.1-6.9); PLATELET COUNT 487 x10e3/uL (140-360); RED BLOOD COUNT 4.07 x10e6/uL (4.3-5.7); RED CELL DISTRIBUTION WIDTH 12.4 % (11.7-14.4); WHITE BLOOD COUNT 5.59 x10e3/uL (4.8-10.8)
[2024-12-28 19:29] LABS: INR 1.01; PROTHROMBIN TIME 13.9 seconds (11.9-14.5)
[2024-12-28 19:30] LABS: PARTIAL THROMBOPLASTIN TIME 36.6 seconds (23.8-35.5)
[2024-12-28 19:38] LABS: ALBUMIN 3.4 g/dL (3.5-5.0); ALBUMIN/GLOBULIN RATIO 0.9 (0.8-2.0); ANION GAP 16.4 mmol/L (8-16); BILIRUBIN,TOTAL 0.2 mg/dL (0.2-1.2); CALCIUM 8.6 mg/dL (8.4-10.2); CREATININE, SERUM 0.8 mg/dL (0.72-1.25)
[2024-12-28 19:40] LABS: CORONAVIRUS COVID-19 AG NEGATIVE (NEGATIVE); INFLUENZA A AG POSITIVE (NEGATIVE); INFLUENZA B AG NEGATIVE (NEGATIVE); POTASSIUM 3.4 mmol/L (3.5-5.1)
[2024-12-28] MEDS ORDERED: IOPAMIDOL 370 MG/ML 100 ML INFUS..BTL INJ ONE (19:47)
[2024-12-28 20:30] VITALS: PULSE 103; RESP 16; TEMP 100.5
[2024-12-28] MEDS: TRAMADOL HCL 50 MG TAB PO ONE (20:56)
[2024-12-28 20:58] LABS: CLARITY,URINE CLEAR (CLEAR); COLOR,URINE YELLOW (YELLOW)
[2024-12-28 20:59] LABS: BILIRUBIN,URINE NEGATIVE (NEGATIVE); GLUCOSE, URINE NEGATIVE (NEGATIVE); KETONES,URINE NEGATIVE (NEGATIVE); LEUKOCYTE ESTERASE ,URINE NEGATIVE (NEGATIVE); NITRITE,URINE NEGATIVE (NEGATIVE); PH,URINE 6 (5 - 7); PROTEIN,URINE DIPSTICK TRACE (NEGATIVE); URINE UROBILINOGEN 0.2 mg/dL (0.2 - 1)
[2024-12-28 21:38] LABS: WBC,URINE (MAN) 0-5 /HPF (0-5)
[2024-12-28 21:40] LABS: MUCUS,URINE FEW
[2024-12-28] MEDS ORDERED: XOFLUZA80 MG PO (21:49)
[2024-12-28 22:11] VITALS: BP 110/65; O2SAT 96
== END 2024-12-28 22:10 | disposition home or self-care (01) ==
LOC: ER 18:53
DX: R50.9 Fever, unspecified (principal); J10.1 Influenza due to other identified influenza virus with other respiratory manifestations; R05.9 Cough, unspecified; J44.9 Chronic obstructive pulmonary disease, unspecified; E78.5 Hyperlipidemia, unspecified; M54.9 Dorsalgia, unspecified; G89.29 Other chronic pain; K21.9 Gastro-esophageal reflux disease without esophagitis; M06.9 Rheumatoid arthritis, unspecified; F41.9 Anxiety disorder, unspecified; M79.7 Fibromyalgia; F43.10 Post-traumatic stress disorder, unspecified; F17.210 Nicotine dependence, cigarettes, uncomplicated
CPT/HCPCS: 36415; 71045; 74177; 80053; 81001; 83605; 85025; 85610; 85730; 87040; 87086; 87428; 93005; 99284; J0131; J0692; J7030; J7050; Q9967

== ENCOUNTER → 2025-04-20 | Outpatient (REF) | payer MEDICAID ==
[~2025-04-20] MED LIST changes: +XOFLUZA80 MG PO
== END ==
LOC: CT 07:57
PROVIDERS: ATTEND Internal Medicine Pulmonary Disease
DX: J44.9 Chronic obstructive pulmonary disease, unspecified (principal)
CPT/HCPCS: 71250